=== PATIENT | male | born 1955 | race Two or more races ===

== ENCOUNTER 2017-11-27 10:36 | Emergency (ER) | payer OTHER ==
[~2017-11-27] VITALS: Ht 175.3 cm; Wt 84.4 kg
[~2017-11-27 10:36] MED LIST: XARELTO15 MG PO
== END 2017-11-27 12:40 | disposition home or self-care (01) ==
LOC: ER 10:36
DX: I82.401 Acute embolism and thrombosis of unspecified deep veins of right lower extremity (principal)

== ENCOUNTER 2022-07-03 08:18 | Outpatient (CLI) | payer OTHER | END 2022-07-03 08:30 | disposition home or self-care (01) | LOC: LAB 08:18 | PROVIDERS: ATTEND Surgery | DX: K57.32 Diverticulitis of large intestine without perforation or abscess without bleeding (principal); K56.50 Intestinal adhesions [bands], unspecified as to partial versus complete obstruction ==

== ENCOUNTER 2022-07-05 09:54 | Outpatient (CLI) | payer OTHER | END 2022-07-05 10:00 | disposition home or self-care (01) | LOC: RAD 09:54 | PROVIDERS: ATTEND Surgery | DX: K57.32 Diverticulitis of large intestine without perforation or abscess without bleeding (principal); K56.50 Intestinal adhesions [bands], unspecified as to partial versus complete obstruction ==

== ENCOUNTER 2022-07-07 12:23 | Inpatient (IN) | payer OTHER ==
[~2022-07-07] VITALS: Ht 175.3 cm; Wt 70.3 kg
[2022-07-07] MEDS ORDERED: ELIQUIS5 MG PO (13:25)
[2022-07-07] MEDS ORDERED: AMLODIP PO (13:25)
[2022-07-12] MEDS ORDERED: OMEPRAZOLE40 MG (08:21)
[2022-07-12] MEDS ORDERED: NORVASC2.5 MG (08:21)
[2022-07-12] MEDS ORDERED: FLONASE16 GM (08:21)
[2022-07-15] MEDS ORDERED: LEVSIN/SL0.125 MG SL (08:03)
[2022-07-15] MEDS ORDERED: INTESTINEX680 M1 PO (11:15)
== END 2022-07-15 14:05 | disposition home or self-care (01) | DRG 330 ==
LOC: SURH 07-12 05:40 → O/R 07-12 05:40 → SURH 07-12 08:28
PROVIDERS: ADMIT Surgery; ATTEND Surgery
PROC: 0DBP4ZZ Excision of Rectum, Percutaneous Endoscopic Approach (ICD-10-PCS; 2022-07-12)
PROC: 0DJD8ZZ Inspection of Lower Intestinal Tract, Via Natural or Artificial Opening Endoscopic (ICD-10-PCS; 2022-07-12)
PROC: 0DTN4ZZ Resection of Sigmoid Colon, Percutaneous Endoscopic Approach (ICD-10-PCS; principal; 2022-07-12 16:00)
DX: K57.32 Diverticulitis of large intestine without perforation or abscess without bleeding (principal); K56.49 Other impaction of intestine; K56.50 Intestinal adhesions [bands], unspecified as to partial versus complete obstruction; D12.7 Benign neoplasm of rectosigmoid junction; Z79.84 Long term (current) use of oral hypoglycemic drugs; I73.00 Raynaud's syndrome without gangrene; E16.2 Hypoglycemia, unspecified

== ENCOUNTER 2023-01-12 12:35 | Inpatient (IN) | payer OTHER ==
[~2023-01-12] VITALS: Ht 167.6 cm; Wt 63.5 kg
[~2023-01-12 12:35] MED LIST changes: +AMLODIP PO; +ELIQUIS5 MG PO; +FLONASE16 GM; +INTESTINEX680 M1 PO; +LEVSIN/SL0.125 MG SL; +NORVASC2.5 MG; +OMEPRAZOLE40 MG
[2023-01-12 15:16] LABS: HEMATOCRIT 39.3 % (39.0-48.0); HEMOGLOBIN 13.2 g/dL (13-16.00); MEAN CELL VOLUME 92.3 fL (80.0-100.00); MEAN CORPUSCULAR HGB CONC 33.6 g/dl (32.0-36.0); PLATELET COUNT 315 K/uL (150-450); RED BLOOD COUNT 4.25 M/uL (4.00-6.00); RED CELL DISTRIBUTION WIDTH 14.2 % (11.5-14.5)
[2023-01-12 15:21] LABS: PH,URINE 5.5 (5.0-8.0); URINE APPEARANCE Clear; URINE BILIRRUBIN Small (NEGATIVE); URINE BLOOD Negative; URINE COLOR Dark Yellow; URINE GLUCOSE Negative (NEGATIVE); URINE LEUKOCYTE Trace; URINE NITRATE Negative; URINE PROTEIN 30 (NEGATIVE)
[2023-01-12 15:22] LABS: URINE BACTERIA 15.7 uL (0.0-1933); URINE EPITHELIAL CELLS 13.7 uL (0.0-38.8); URINE RBC 7.4 uL (0.0-20.8); URINE WBC 11.2 uL (0.0-23.2)
[2023-01-12 15:52] LABS: ALBUMIN 3.2 gm/dL (3.4-5.0); BILIRUBIN TOTAL 1.25 mg/dL (0.3-1.2); BILIRUBIN,CONJUGATED 0.38 mg/dL (0.0-0.2); BILIRUBIN,UNCONJUGATED 0.87 mg/dL (0.0-0.6); CREATININE SERUM 0.38 mg/dL (0.70-1.30); GFR 227.65; POTASSIUM 3.71 mEq/L (3.5-5.1); TOTAL PROTEIN 7.8 gm/dL (6.4-8.2)
[2023-01-12 23:53] LABS: INR 1.05; PARTIAL THROMBOPLASTIN TIME 30.1 SECONDS (22.0-34.0)
[2023-01-13 02:09] LABS: ABG PO2 69.6 mmHg (80-100); BASE EXCESS -0.9 mmol/l; BICARBONATE 22.7 mmol/l (23-25); SaO2 94.2 %; Tco2 23.8 mmol/l
[2023-01-13 02:10] LABS: allen test SATISFACTORY; o2 21 %; puncture site RADIAL RIGHT
[2023-01-14 14:58] LABS: HEMATOCRIT 35.4 % (39.0-48.0); MEAN CELL VOLUME 92.4 fL (80.0-100.00); MEAN CORPUSCULAR HEMOGLOBIN 31.2 pg (27.00-32.0); MEAN CORPUSCULAR HGB CONC 33.8 g/dl (32.0-36.0); PLATELET COUNT 261 K/uL (150-450); RED BLOOD COUNT 3.83 M/uL (4.00-6.00); RED CELL DISTRIBUTION WIDTH 14.3 % (11.5-14.5)
[2023-01-14 15:23] LABS: ALBUMIN 2.5 gm/dL (3.4-5.0); BILIRUBIN TOTAL 0.56 mg/dL (0.3-1.2); BILIRUBIN,CONJUGATED 0.17 mg/dL (0.0-0.2); BILIRUBIN,UNCONJUGATED 0.39 mg/dL (0.0-0.6); CALCIUM 7.8 mg/dL (8.5-10.1); CREATININE SERUM 0.3 mg/dL (0.70-1.30); GFR 299.04; MAGNESIUM 1.8 mg/dL (1.8-2.4); PHOSPHOROUS 2.6 mg/dL (2.5-4.9); POTASSIUM 3.69 mEq/L (3.5-5.1)
[2023-01-14 15:24] LABS: C-REACTIVE PROTEIN 3.74 MG/DL (0.00-0.29)
[2023-01-17 06:43] LABS: HEMATOCRIT 31.9 % (39.0-48.0); HEMOGLOBIN 11.3 g/dL (13-16.00); MEAN CORPUSCULAR HEMOGLOBIN 31.8 pg (27.00-32.0); MEAN CORPUSCULAR HGB CONC 35.3 g/dl (32.0-36.0); PLATELET COUNT 238 K/uL (150-450); RED BLOOD COUNT 3.55 M/uL (4.00-6.00); RED CELL DISTRIBUTION WIDTH 14.2 % (11.5-14.5)
[2023-01-17 07:07] LABS: ERYTHROCYTE SEDIMENTATION RATE 18 mm/hr
[2023-01-17 07:16] LABS: ALBUMIN 2.1 gm/dL (3.4-5.0); BILIRUBIN TOTAL 0.25 mg/dL (0.3-1.2); CALCIUM 7.5 mg/dL (8.5-10.1); CREATININE SERUM 0.35 mg/dL (0.70-1.30); GFR 250.31; GLOBULINA 3.2 G/DL (2.4-3.5); TOTAL PROTEIN 5.3 gm/dL (6.4-8.2)
[2023-01-17 08:14] LABS: C-REACTIVE PROTEIN 0.93 MG/DL (0.00-0.29)
[2023-01-19] MEDS ORDERED: NORVASC2.5 M1 PO (13:19)
[2023-01-19] MEDS ORDERED: PRE PROTEIN1 EACH PO (13:19)
[2023-01-19] MEDS ORDERED: ELIQUIS5 MG PO (13:19)
[2023-01-19] MEDS ORDERED: PANTOPRAZOLE SO40 MG PO (13:19)
[2023-01-19] MEDS ORDERED: IPRATROPIU0.2 MG/1 M IH (13:19)
[2023-01-19] MEDS ORDERED: BENZONATATE100 MG PO (13:19)
[2023-01-19] MEDS ORDERED: PEPCID AC20 MG PO (13:19)
== END 2023-01-19 14:30 | disposition home or self-care (01) | DRG 178 ==
LOC: ER 12:36 → MEDJ 22:03 → MEDI 22:29
PROVIDERS: General Practice; Internal Medicine; ADMIT Internal Medicine Geriatric Medicine; ATTEND Internal Medicine Geriatric Medicine
PROC: BW21YZZ Computerized Tomography (CT Scan) of Abdomen and Pelvis using Other Contrast (ICD-10-PCS; 2023-01-12)
PROC: B24BZZZ Ultrasonography of Heart with Aorta (ICD-10-PCS; 2023-01-14)
PROC: 0DB98ZX Excision of Duodenum, Via Natural or Artificial Opening Endoscopic, Diagnostic (ICD-10-PCS; principal; 2023-01-17)
PROC: 0DB58ZX Excision of Esophagus, Via Natural or Artificial Opening Endoscopic, Diagnostic (ICD-10-PCS; 2023-01-17)
PROC: 0DB68ZX Excision of Stomach, Via Natural or Artificial Opening Endoscopic, Diagnostic (ICD-10-PCS; 2023-01-17)
PROC: BW21YZZ Computerized Tomography (CT Scan) of Abdomen and Pelvis using Other Contrast (ICD-10-PCS; 2023-01-19)
DX: J69.0 Pneumonitis due to inhalation of food and vomit (principal); D68.51 Activated protein C resistance; K31.5 Obstruction of duodenum; K21.00 Gastro-esophageal reflux disease with esophagitis, without bleeding; K29.80 Duodenitis without bleeding; I73.00 Raynaud's syndrome without gangrene; M60.89 Other myositis, multiple sites; G70.00 Myasthenia gravis without (acute) exacerbation; Z20.822 Contact with and (suspected) exposure to COVID-19

== ENCOUNTER 2023-11-15 14:34 | Inpatient (IN) | payer OTHER ==
[~2023-11-15] VITALS: Ht 167.6 cm; Wt 53.5 kg
[~2023-11-15 14:34] MED LIST changes: +ABANEU-SL TABL1 EACH SL; +APETIGEN L790 MG/15 PO; +BENZONATATE100 MG PO; +DuoNeb IH; +FUSION PLUS CA1 EACH PO; +IPRATROPIU0.2 MG/1 M IH; +NORVASC2.5 M1 PO; +PANTOPRAZOLE SO40 MG PO; +PEPCID AC20 MG PO; +PRE PROTEIN1 EACH PO; +PROTEINEX-18 LI30 ML PO; +SYMBICORT 16010.2 GM IH; +Tussi-Organidin Dm-S PO
[2023-11-15 16:40] LABS: ABG PH 7.367 (7.35-7.45); ABG pCO2 37.3 mmHg (35-45); BASE EXCESS -3.8 mmol/l; BICARBONATE 20.9 mmol/l (23-25); SaO2 86.3 %; Tco2 22.1 mmol/l
[2023-11-15] MEDS ORDERED: METHYLPREDNISOLONE SOD SUCC 125 MG VIAL IV STA (16:42)
[2023-11-15] MEDS ORDERED: LEVALBUTEROL HCL 1.25 MG/3 ML SOLUTION IH ONE (16:46)
[2023-11-15 16:48] LABS: HEMATOCRIT 43.9 % (39.0-48.0); HEMOGLOBIN 15.2 g/dL (13-16.00); MEAN CELL VOLUME 93.1 fL (80.0-100.00); MEAN CORPUSCULAR HEMOGLOBIN 32.3 pg (27.00-32.0); MEAN CORPUSCULAR HGB CONC 34.7 g/dl (32.0-36.0); PLATELET COUNT 282 K/uL (150-450); RED BLOOD COUNT 4.71 M/uL (4.00-6.00); RED CELL DISTRIBUTION WIDTH 15.9 % (11.5-14.5)
[2023-11-15] MEDS ORDERED: LEVALBUTEROL HCL 1.25 MG/3 ML SOLUTION IH SCH (17:00)
[2023-11-15 17:23] LABS: ALBUMIN 3.9 gm/dL (3.4-5.0); BILIRUBIN TOTAL 0.59 mg/dL (0.3-1.2); BILIRUBIN,CONJUGATED 0.21 mg/dL (0.0-0.2); BILIRUBIN,UNCONJUGATED 0.38 mg/dL (0.0-0.6); CALCIUM 8.7 mg/dL (8.5-10.1); CREATININE SERUM 0.53 mg/dL (0.70-1.30); GFR 154.6; POTASSIUM 3.9 mEq/L (3.5-5.1); TOTAL PROTEIN 8.3 gm/dL (6.4-8.2)
[2023-11-15] MEDS ORDERED: DEXTROSE 5 % AND 0.9 % NACL 1,000 ML IV SCH (18:15)
[2023-11-15] MEDS ORDERED: ONDANSETRON HCL 2 MG/ML VIAL IV PRN (18:15)
[2023-11-15] MEDS ORDERED: BENZONATATE 100 MG CAPSULE PO SCH (18:15)
[2023-11-15] MEDS ORDERED: CEFTRIAXONE SODIUM 1,000 MG VIAL IV STA (18:15)
[2023-11-15] MEDS ORDERED: AZITHROMYCIN 500 MG VIAL IV SCH (18:17)
[2023-11-15] MEDS ORDERED: GUAIFENESIN/DEXTROMETHORPHAN 10ML BLIST.PACK PO SCH (18:17)
[2023-11-15] MEDS ORDERED: IPRATROPIUM BROMIDE 0.5 MG/2.5 ML AMPUL.NEB IH SCH (18:18)
[2023-11-15 18:35] LABS: ABG PO2 54.2 mmHg (80-100); allen test SATISFACTORY; o2 32 %; puncture site RADIAL RIGHT
[2023-11-15] MEDS ORDERED: GUAIFENESIN/DEXTROMETHORPHAN 10ML BLIST.PACK PO ONE ×2 (18:53→19:19)
[2023-11-15] MEDS ORDERED: BENZONATATE 100 MG CAPSULE PO ONE (18:53)
[2023-11-15] MEDS ORDERED: CEFTRIAXONE SODIUM 2,000 MG VIAL ONE (18:53)
[2023-11-15] MEDS ORDERED: IPRATROPIUM BROMIDE 0.5 MG/2.5 ML AMPUL.NEB IH ONE (18:59)
[2023-11-15 19:13] LABS: ABG PH 7.367 (7.35-7.45); ABG pCO2 39.7 mmHg (35-45); BASE EXCESS -2.8 mmol/l; BICARBONATE 22.2 mmol/l (23-25); SaO2 98.9 %; Tco2 23.5 mmol/l
[2023-11-15 20:02] LABS: o2 100 %; puncture site RADIAL RIGHT
[2023-11-15 20:03] LABS: allen test SATISFACTORY
[2023-11-15] MEDS ORDERED: FAMOTIDINE/PF 20 MG/2 ML VIAL ONE (20:42)
[2023-11-15] MEDS ORDERED: METHYLPREDNISOLONE SOD SUCC 40 MG VIAL ONE (20:42)
[2023-11-15] MEDS ORDERED: APIXABAN 5 MG TABLET PO SCH (21:00)
[2023-11-15] MEDS ORDERED: BUDESONIDE 0.5 MG/2 ML AMPUL.NEB IH SCH (21:00)
[2023-11-15] MEDS ORDERED: FAMOTIDINE/PF 20 MG/10 ML SYRINGE IV SCH (21:00)
[2023-11-15] MEDS ORDERED: METHYLPREDNISOLONE SOD SUCC 40 MG VIAL IV SCH (21:00)
[2023-11-16] MEDS ORDERED: LEVALBUTEROL HCL 0.63 MG/3 ML SOLUTION IH SCH
[2023-11-16 04:58] LABS: PH,URINE 5.5 (5.0-8.0); URINE APPEARANCE Cloudy; URINE BILIRRUBIN Negative (NEGATIVE); URINE BLOOD Negative; URINE COLOR Dark Yellow; URINE GLUCOSE Negative (NEGATIVE); URINE KETONE 15 (NEGATIVE); URINE LEUKOCYTE Negative; URINE NITRATE Negative; URINE PROTEIN 30 (NEGATIVE); URINE UROBILINOGEN 0.2 E.U./dl
[2023-11-16 05:02] LABS: URINE BACTERIA 91.9 uL (0.0-1933); URINE CAST 18.78 uL (0.0-1.40); URINE EPITHELIAL CELLS 50.8 uL (0.0-38.8); URINE RBC 7.7 uL (0.0-20.8); URINE WBC 10.9 uL (0.0-23.2)
[2023-11-16 05:29] LABS: URINE MUCUS SCANT
[2023-11-16 07:50] LABS: HEMATOCRIT 38.4 % (39.0-48.0); HEMOGLOBIN 13.3 g/dL (13-16.00); MEAN CELL VOLUME 91.5 fL (80.0-100.00); MEAN CORPUSCULAR HEMOGLOBIN 31.7 pg (27.00-32.0); MEAN CORPUSCULAR HGB CONC 34.7 g/dl (32.0-36.0); PLATELET COUNT 170 K/uL (150-450)
[2023-11-16 08:20] LABS: ERYTHROCYTE SEDIMENTATION RATE 10 mm/hr
[2023-11-16 08:44] LABS: ALBUMIN 3.7 gm/dL (3.4-5.0); BILIRUBIN TOTAL 0.69 mg/dL (0.3-1.2); CREATININE SERUM 0.43 mg/dL (0.70-1.30); GFR 196.79; GLOBULINA 3.8 G/DL (2.4-3.5); PHOSPHOROUS 3.7 mg/dL (2.5-4.9); POTASSIUM 4.52 mEq/L (3.5-5.1); TOTAL PROTEIN 7.5 gm/dL (6.4-8.2)
[2023-11-16 08:50] LABS: C-REACTIVE PROTEIN 8.94 MG/DL (0.00-0.29)
[2023-11-16 08:51] LABS: MAGNESIUM 1.3 mg/dL (1.8-2.4)
[2023-11-16] MEDS ORDERED: AMLODIPINE BESYLATE 2.5 MG TABLET PO SCH (09:00)
[2023-11-16] MEDS ORDERED: MAGNESIUM SULFATE IN WATER 50 ML IV ONE (12:00)
[2023-11-16] MEDS ORDERED: TUBERCULIN,PURIF.PROT.DERIV. 10 SKIN.TEST SKIN.TEST ID STA (13:30)
[2023-11-16] MEDS ORDERED: CEFTRIAXONE SODIUM 1,000 MG VIAL IV SCH (17:00)
[2023-11-16] MEDS ORDERED: LACTOBACILLUS ACIDOPHILUS 1 CAP CAP PO SCH (17:00)
[2023-11-16] MEDS ORDERED: GUAIFENESIN/DEXTROMETHORPHAN 10ML BLIST.PACK PO SCH (18:00)
[2023-11-16] MEDS ORDERED: PIPERACILLIN/TAZOBACTAM SODIUM 3.375 GM in 0.9 % SODIUM CHLORIDE 100 ML IV SCH (18:00)
[2023-11-16] MEDS ORDERED: FAMOTIDINE/PF 20 MG/2 ML VIAL IV SCH (21:00)
[2023-11-17 12:39] LABS: MYCOPLASMA PNEUMONIAE IGM NON REACTIVE (NO REACTIVE)
[2023-11-18 05:56] LABS: HEMATOCRIT 29.5 % (39.0-48.0); HEMOGLOBIN 10.4 g/dL (13-16.00); MEAN CELL VOLUME 92.2 fL (80.0-100.00); MEAN CORPUSCULAR HEMOGLOBIN 32.6 pg (27.00-32.0); MEAN CORPUSCULAR HGB CONC 35.3 g/dl (32.0-36.0); PLATELET COUNT 131 K/uL (150-450); RED CELL DISTRIBUTION WIDTH 15.9 % (11.5-14.5)
[2023-11-18 06:41] LABS: ALBUMIN 2.6 gm/dL (3.4-5.0); BILIRUBIN TOTAL 0.5 mg/dL (0.3-1.2); CALCIUM 8.4 mg/dL (8.5-10.1); MAGNESIUM 1.8 mg/dL (1.8-2.4); PHOSPHOROUS 2.1 mg/dL (2.5-4.9); POTASSIUM 3.08 mEq/L (3.5-5.1); TOTAL PROTEIN 5.6 gm/dL (6.4-8.2)
[2023-11-18 06:46] LABS: C-REACTIVE PROTEIN 2.77 MG/DL (0.00-0.29); CREATININE SERUM 0.23 mg/dL (0.70-1.30); GFR 405.14
[2023-11-18] MEDS ORDERED: POTASSIUM CHLORIDE 20MEQ/100ML H2O PB IV NR (09:41)
[2023-11-18] MEDS ORDERED: POTASSIUM PHOS,M-BASIC-D-BASIC 3 MM/ML VIAL IV NR (09:42)
[2023-11-18 12:17] LABS: ABG PH 7.463 (7.35-7.45); ABG PO2 68.2 mmHg (80-100); ABG pCO2 34.6 mmHg (35-45); BICARBONATE 24.2 mmol/l (23-25); SaO2 94.5 %; Tco2 25.3 mmol/l; allen test SATISFACTORY; o2 21 %; puncture site RADIAL LEFT
[2023-11-18] MEDS ORDERED: METHYLPREDNISOLONE SOD SUCC 40 MG VIAL IV SCH (13:00)
[2023-11-19] MEDS ORDERED: SOD FERRIC GLUC COMPLX/SUCROSE 62.5 MG in 0.9 % SODIUM CHLORIDE 50 ML IV SCH (12:00)
[2023-11-19] MEDS ORDERED: Cyanocobalamin/Mecobalamin 1 TAB.SL SL SCH (12:00)
[2023-11-19] MEDS ORDERED: THIAMINE HCL 100 MG TABLET PO SCH (12:00)
[2023-11-20 08:30] LABS: HEMATOCRIT 33.3 % (39.0-48.0); HEMOGLOBIN 11.5 g/dL (13-16.00); MEAN CELL VOLUME 91.9 fL (80.0-100.00); MEAN CORPUSCULAR HEMOGLOBIN 31.7 pg (27.00-32.0); MEAN CORPUSCULAR HGB CONC 34.4 g/dl (32.0-36.0); PLATELET COUNT 160 K/uL (150-450); RED BLOOD COUNT 3.63 M/uL (4.00-6.00); RED CELL DISTRIBUTION WIDTH 16.7 % (11.5-14.5)
[2023-11-20 11:58] LABS: CALCIUM 9.1 mg/dL (8.5-10.1); CREATININE SERUM 0.46 mg/dL (0.70-1.30); GFR 182.06; MAGNESIUM 1.5 mg/dL (1.8-2.4); PHOSPHOROUS 2.5 mg/dL (2.5-4.9); POTASSIUM 5.35 mEq/L (3.5-5.1); T4 TOTAL 6.12 UG/DL (4.5-12.1)
[2023-11-20 12:03] LABS: TSH 0.166 uIU/mL (0.358-3.74)
[2023-11-20] MEDS ORDERED: MAGNESIUM SULFATE IN WATER 4 GM/100 ML PIGGYBACK IV NR (16:15)
[2023-11-21] MEDS ORDERED: MAGNESIUM SULFATE IN WATER 50 ML IV NR (08:45)
[2023-11-21 10:34] LABS: ABG PO2 80.2 mmHg (80-100); ABG pCO2 44.2 mmHg (35-45); BASE EXCESS 9.3 mmol/l; BICARBONATE 33.7 mmol/l (23-25); SaO2 97.1 %; Tco2 35.1 mmol/l; allen test SATISFACTORY; o2 32 %; puncture site RADIAL RIGHT
[2023-11-21] MEDS ORDERED: ANIDULAFUNGIN 100 MG VIAL IV NR (17:00)
[2023-11-21] MEDS ORDERED: ENOXAPARIN SODIUM 60 MG/0.6 ML SYRINGE SUBCUTANEO SCH (21:00)
[2023-11-22] MEDS ORDERED: METHYLPREDNISOLONE SOD SUCC 40 MG VIAL IV SCH (09:00)
[2023-11-22] MEDS ORDERED: ANIDULAFUNGIN 100 MG VIAL IV SCH (09:00)
[2023-11-22 09:27] LABS: CALCIUM 8.1 mg/dL (8.5-10.1); GFR 351.68; PHOSPHOROUS 3.7 mg/dL (2.5-4.9); POTASSIUM 4.19 mEq/L (3.5-5.1)
[2023-11-22 09:28] LABS: CREATININE SERUM 0.26 mg/dL (0.70-1.30)
[2023-11-22 11:28] LABS: HEMATOCRIT 35.5 % (39.0-48.0); HEMOGLOBIN 12.1 g/dL (13-16.00); MEAN CELL VOLUME 91.9 fL (80.0-100.00); MEAN CORPUSCULAR HEMOGLOBIN 31.2 pg (27.00-32.0); PLATELET COUNT 183 K/uL (150-450); RED BLOOD COUNT 3.86 M/uL (4.00-6.00); RED CELL DISTRIBUTION WIDTH 16.4 % (11.5-14.5)
[2023-11-22 15:10] LABS: ANTI SCLERODERMA 70 < 0.2 AI (0.0-0.9); ANTI-CENTROMERE AB >8.0 AI (0.0-0.9)
[2023-11-23] MEDS ORDERED: MIDAZOLAM HCL 2 MG/2 ML VIAL IV ONE (12:45)
[2023-11-23] MEDS ORDERED: fentaNYL CITRATE 50 MCG/ML AMPUL IV ONE (12:45)
[2023-11-23] MEDS ORDERED: ENOXAPARIN SODIUM 100 MG/ML SYRINGE SUBCUTANEO STA (14:18)
[2023-11-23] MEDS ORDERED: ENOXAPARIN SODIUM 60 MG/0.6 ML SYRINGE SUBCUTANEO SCH (17:00)
[2023-11-24 17:06] LABS: Alpha Tochpherol 5.2 mg/L (9.0-29.0)
[2023-11-25 08:34] LABS: HEMATOCRIT 37.6 % (39.0-48.0); HEMOGLOBIN 12.8 g/dL (13-16.00); MEAN CELL VOLUME 93.7 fL (80.0-100.00); MEAN CORPUSCULAR HEMOGLOBIN 31.9 pg (27.00-32.0); PLATELET COUNT 224 K/uL (150-450); RED BLOOD COUNT 4.01 M/uL (4.00-6.00); RED CELL DISTRIBUTION WIDTH 16.2 % (11.5-14.5)
[2023-11-25 09:15] LABS: CALCIUM 8.7 mg/dL (8.5-10.1); CREATININE SERUM 0.34 mg/dL (0.70-1.30); GFR 258.05; PHOSPHOROUS 2.7 mg/dL (2.5-4.9); POTASSIUM 5.13 mEq/L (3.5-5.1); T4 TOTAL 6.82 UG/DL (4.5-12.1); TSH 1.02 uIU/mL (0.358-3.74)
[2023-11-25] MEDS ORDERED: MORPHINE SULFATE 4 MG/ML CARTRIDGE IV PRN (17:45)
[2023-11-25] MEDS ORDERED: ENOXAPARIN SODIUM 60 MG/0.6 ML SYRINGE SUBCUTANEO SCH (21:00)
[2023-11-27 07:46] LABS: HEMATOCRIT 36.1 % (39.0-48.0); HEMOGLOBIN 12.3 g/dL (13-16.00); MEAN CELL VOLUME 91.7 fL (80.0-100.00); MEAN CORPUSCULAR HEMOGLOBIN 31.3 pg (27.00-32.0); MEAN CORPUSCULAR HGB CONC 34.1 g/dl (32.0-36.0); PLATELET COUNT 224 K/uL (150-450); RED BLOOD COUNT 3.93 M/uL (4.00-6.00); RED CELL DISTRIBUTION WIDTH 16.4 % (11.5-14.5)
[2023-11-27 08:26] LABS: CALCIUM 8.3 mg/dL (8.5-10.1); CREATININE SERUM 0.39 mg/dL (0.70-1.30); GFR 220.26; MAGNESIUM 1.8 mg/dL (1.8-2.4); POTASSIUM 3.97 mEq/L (3.5-5.1)
[2023-11-27] MEDS ORDERED: POTASSIUM PHOS,M-BASIC-D-BASIC 3 MM/ML VIAL IV NR (09:15)
[2023-11-28] MEDS ORDERED: IPRATROPIUM/ALBUTEROL SULFATE 3 ML AMPUL.NEB IH SCH (21:00)
[2023-11-29 10:16] LABS: HEMATOCRIT 33.3 % (39.0-48.0); HEMOGLOBIN 11.3 g/dL (13-16.00); MEAN CELL VOLUME 92.1 fL (80.0-100.00); MEAN CORPUSCULAR HEMOGLOBIN 31.3 pg (27.00-32.0); PLATELET COUNT 225 K/uL (150-450); RED BLOOD COUNT 3.61 M/uL (4.00-6.00); RED CELL DISTRIBUTION WIDTH 16.7 % (11.5-14.5)
[2023-11-29 11:26] LABS: CALCIUM 8.7 mg/dL (8.5-10.1); CREATININE SERUM 0.32 mg/dL (0.70-1.30); GFR 276.75; MAGNESIUM 1.9 mg/dL (1.8-2.4); POTASSIUM 4.96 mEq/L (3.5-5.1)
[2023-11-29 11:31] LABS: PHOSPHOROUS 1.8 mg/dL (2.5-4.9)
[2023-11-29] MEDS ORDERED: NAPH,MB-DB/K PH,MBDB 1 PKT PACKET PO NR (14:00)
[2023-11-29] MEDS ORDERED: ELIQUIS5 MG PO (14:14)
[2023-11-29] MEDS ORDERED: FUSION PLUS CA1 EACH PO (14:15)
[2023-11-29] MEDS ORDERED: BENZONATATE100 MG PO (14:15)
[2023-11-29] MEDS ORDERED: NORVASC2.5 M1 PO (14:15)
[2023-11-29] MEDS ORDERED: Tussi-Organidin Dm-S PO (14:16)
[2023-11-29] MEDS ORDERED: PEPCID AC20 MG PO (14:17)
[2023-11-29] MEDS ORDERED: INTESTINEX680 M1 PO (14:17)
[2023-11-29] MEDS ORDERED: PANTOPRAZOLE SO40 MG PO (14:18)
[2023-11-29] MEDS ORDERED: ABANEU-SL TABL1 EACH SL (14:18)
[2023-11-29] MEDS ORDERED: APETIGEN L790 MG/15 PO (14:19)
[2023-11-29] MEDS ORDERED: THIAMINE HCL100 MG PO (14:19)
[2023-11-29] MEDS ORDERED: PROTEINEX-18 LI30 ML PO (14:20)
[2023-11-29] MEDS ORDERED: IPRAT-ALBUT 0.5-3 ML IH (14:20)
[2023-11-29] MEDS ORDERED: BUDESONIDE0.5 MG/2 M IH (14:21)
== END 2023-11-29 23:27 | disposition home or self-care (01) | DRG 853 ==
LOC: ER 14:35 → SURH 18:42 → MEDJ 18:42 → SEC-K 19:12 → SURH 19:37
PROVIDERS: General Practice; Internal Medicine; Internal Medicine Infectious Disease; ADMIT Internal Medicine Geriatric Medicine; ATTEND Internal Medicine Geriatric Medicine
PROC: BW24ZZZ Computerized Tomography (CT Scan) of Chest and Abdomen (ICD-10-PCS; 2023-11-15)
PROC: B030ZZZ Magnetic Resonance Imaging (MRI) of Brain (ICD-10-PCS; 2023-11-17)
PROC: CF1C1ZZ Planar Nuclear Medicine Imaging of Hepatobiliary System, All using Technetium 99m (Tc-99m) (ICD-10-PCS; 2023-11-18)
PROC: 0DJ08ZZ Inspection of Upper Intestinal Tract, Via Natural or Artificial Opening Endoscopic (ICD-10-PCS; 2023-11-23)
PROC: 0D964ZZ Drainage of Stomach, Percutaneous Endoscopic Approach (ICD-10-PCS; principal; 2023-11-25 16:30)
DX: A41.9 Sepsis, unspecified organism (principal); J69.0 Pneumonitis due to inhalation of food and vomit; J80 Acute respiratory distress syndrome; D68.59 Other primary thrombophilia; E46 Unspecified protein-calorie malnutrition; Z68.1 Body mass index [BMI] 19.9 or less, adult; J44.9 Chronic obstructive pulmonary disease, unspecified; J98.8 Other specified respiratory disorders; D72.829 Elevated white blood cell count, unspecified; K22.9 Disease of esophagus, unspecified; K81.1 Chronic cholecystitis; D64.9 Anemia, unspecified; I73.00 Raynaud's syndrome without gangrene
CPT/HCPCS: 70553

== ENCOUNTER 2023-12-04 20:06 | Inpatient (IN) | payer OTHER ==
[~2023-12-04] VITALS: Ht 170.2 cm; Wt 47.6 kg
[~2023-12-04 20:06] MED LIST changes: +BUDESONIDE0.5 MG/2 M IH; +FUROsemide 40 MG/4 ML VIAL ONE; +IPRAT-ALBUT 0.5-3 ML IH; +THIAMINE HCL100 MG PO
--- NOTE | 2023-12-04 20:07 | NUR ---
PACIENTE TRAIDO POR UN FAMILIAR EL MISMO REFIERE QUE [facility] EL MISMO ESTABA COMIENDO POR BOCA Y COMENZO CON DIFICIULTAD RESPIRATORIA. PACIENTE CON DIFICULTAD RESPIRATORIA MARCADA SE PASA PACIENTE DIRECTO A CAMA # 3 DE AREA DE CRITICO
[2023-12-04] MEDS ORDERED: FUROsemide 40 MG/4 ML VIAL IV SCH (20:45)
[2023-12-04 21:00] LABS: ABG PH 7.334 (7.35-7.45); ABG pCO2 58.7 mmHg (35-45)
[2023-12-04] MEDS ORDERED: MIDAZOLAM HCL/PF 5 MG/ML VIAL IV ONE (21:00)
[2023-12-04 21:01] LABS: ABG PO2 50.5 mmHg (80-100); BICARBONATE 30.6 mmol/l (23-25); SaO2 82.9 %; Tco2 32.4 mmol/l; allen test SATISFACTORY; o2 28 %; puncture site RADIAL LEFT
[2023-12-04] MEDS ORDERED: CEFTRIAXONE SODIUM 1,000 MG VIAL IV ONE (21:30)
[2023-12-04] MEDS ORDERED: LEVALBUTEROL HCL 0.63 MG/3 ML SOLUTION IH SCH (21:36)
[2023-12-04] MEDS ORDERED: IPRATROPIUM BROMIDE 0.5 MG/2.5 ML AMPUL.NEB IH SCH (21:36)
[2023-12-04 21:38] LABS: HEMOGLOBIN 12.4 g/dL (13-16.00); MEAN CELL VOLUME 91.9 fL (80.0-100.00); MEAN CORPUSCULAR HEMOGLOBIN 30.8 pg (27.00-32.0); MEAN CORPUSCULAR HGB CONC 33.5 g/dl (32.0-36.0); PLATELET COUNT 376 K/uL (150-450); RED BLOOD COUNT 4.02 M/uL (4.00-6.00); RED CELL DISTRIBUTION WIDTH 16.6 % (11.5-14.5)
[2023-12-04] MEDS ORDERED: PIPERACILLIN/TAZOBACTAM SODIUM 3.375 GM in DEXTROSE 5 % IN WATER 100 ML IV SCH (21:40)
[2023-12-04 21:42] LABS: INR 1.09; PROTHROMBIN TIME 11.8 SECONDS (9.0-11.5)
[2023-12-04] MEDS ORDERED: METHYLPREDNISOLONE SOD SUCC 40 MG VIAL IV SCH (21:44)
[2023-12-04] MEDS ORDERED: 0.9 % SODIUM CHLORIDE 1,000 ML IV SCH (21:45)
[2023-12-04] MEDS ORDERED: ENALAPRILAT DIHYDRATE 1.25 MG/ML VIAL IV PRN (21:45)
[2023-12-04] MEDS ORDERED: BUDESONIDE 0.5 MG/2 ML AMPUL.NEB IH SCH (21:55)
[2023-12-04] MEDS ORDERED: METHYLPREDNISOLONE SOD SUCC 125 MG VIAL ONE (22:00)
[2023-12-04] MEDS ORDERED: PIPERACILLIN/TAZOBACTAM SODIUM 3.375 GM VIAL IV ONE (22:00)
[2023-12-04] MEDS ORDERED: PROPOFOL 100 ML IV SCH (22:00)
[2023-12-04] MEDS ORDERED: LEVALBUTEROL HCL 0.63 MG/3 ML SOLUTION IH ONE (22:03)
[2023-12-04 22:16] LABS: CALCIUM 9.1 mg/dL (8.5-10.1); CHOL HDL RATIO 2.5 (0-5.0); CREATININE SERUM 0.56 mg/dL (0.70-1.30); GFR 145.08; MAGNESIUM 1.9 mg/dL (1.8-2.4); POTASSIUM 3.63 mEq/L (3.5-5.1); URIC ACID 2.8 mg/dL (3.5-8.5)
[2023-12-04 22:16] LABS: PH,URINE 5.5 (5.0-8.0); URINE APPEARANCE Clear; URINE BILIRRUBIN Negative (NEGATIVE); URINE BLOOD Negative; URINE COLOR Yellow; URINE GLUCOSE Negative (NEGATIVE); URINE KETONE Negative (NEGATIVE); URINE LEUKOCYTE Negative; URINE NITRATE Negative; URINE PROTEIN 30 (NEGATIVE); URINE UROBILINOGEN 0.2 E.U./dl
[2023-12-04 22:19] LABS: URINE BACTERIA 61.7 uL (0.0-1933); URINE CAST 5.34 uL (0.0-1.40); URINE EPITHELIAL CELLS 8.8 uL (0.0-38.8); URINE RBC 14.9 uL (0.0-20.8); URINE WBC 26.2 uL (0.0-23.2)
[2023-12-04 22:24] LABS: ABG PH 7.408 (7.35-7.45); ABG PO2 344.6 mmHg (80-100); ABG pCO2 48.1 mmHg (35-45); BICARBONATE 29.6 mmol/l (23-25); SaO2 99.9 %; Tco2 31.1 mmol/l
[2023-12-04 23:00] VITALS: BP 75/55; O2SAT 100
[2023-12-04 23:03] VITALS: BP 93/62; O2SAT 100
[2023-12-04 23:25] LABS: DIGOXIN 0.1 ng/ml (0.8-2.0)
[2023-12-04 23:26] LABS: allen test SATISFACTORY; o2 100 %; puncture site RADIAL LEFT
--- NOTE | 2023-12-04 23:42 | NUR ---
2014 SE RECIBE PACIENTE A AREA DE CRITICO EN [place], ALERTA Y ORIENTADO X3. EL MISMO SE OBSERVA CON DIFICULTAD RESPIRATORIA. SE CONECTA A MONITOR CARDIACO Y OXIMETRIA DE PUL[place] CONTINUO. SE CONTACTA A PERSONAL DE TERAPIA RESPIRATORIA Y ANESTESIA. SE ABRE ACCESO VENOSO EN AMBAS EXTREMIDADES SUPERIORES. SE REALIZAN MUESTRAS DE LAB BAJO MEDIDAS ASEPTICAS. SE ADMINISTRA MEDICAMENTOS ISA ORDENES VERBALES DE DR. HORNE Y SE CORROBORAN LAS MISMAS. 2024 PERSONAL DE ANESTESIA MISS Hannah LAGU[place] REALIZA ENTUBACION A PACIENTE CON TUBO 7.5 EN COMISURA LABIAL 25. PERSONAL DE TERAPIA REALIZA SUCCION Y COLOCA VENTILADOR MECANICO CON PARAMETROS EN A/C VT 530, P 5, 02 100, R 14. SE REALIZA EKG, SE COLOCAN RESTRICCIONES VINNIE PROTOCOLO DE VENTILADOR.
[2023-12-05] VITALS (11 sets, daily range): BP systolic 83–109; BP diastolic 61–75; O2SAT 100
[2023-12-05] MEDS ORDERED: PIPERACILLIN/TAZOBACTAM SODIUM 3.375 GM VIAL IV ONE (05:30)
[2023-12-05 06:33] LABS: HEMATOCRIT 30.8 % (39.0-48.0); MEAN CELL VOLUME 90.5 fL (80.0-100.00); MEAN CORPUSCULAR HEMOGLOBIN 32.3 pg (27.00-32.0); MEAN CORPUSCULAR HGB CONC 35.6 g/dl (32.0-36.0); PLATELET COUNT 206 K/uL (150-450); RED BLOOD COUNT 3.41 M/uL (4.00-6.00); RED CELL DISTRIBUTION WIDTH 16.5 % (11.5-14.5)
[2023-12-05 07:19] LABS: ALBUMIN 2.5 gm/dL (3.4-5.0); BILIRUBIN TOTAL 0.94 mg/dL (0.3-1.2); GFR 322.86; GLOBULINA 3.2 G/DL (2.4-3.5); POTASSIUM 3.5 mEq/L (3.5-5.1); TOTAL PROTEIN 5.7 gm/dL (6.4-8.2)
[2023-12-05 07:23] LABS: CREATININE SERUM 0.28 mg/dL (0.70-1.30)
[2023-12-05 08:17] LABS: ABG PH 7.476 (7.35-7.45); ABG PO2 209.2 mmHg (80-100); ABG pCO2 39.3 mmHg (35-45); BASE EXCESS 4.6 mmol/l; BICARBONATE 28.4 mmol/l (23-25); SaO2 99.8 %; Tco2 29.6 mmol/l
[2023-12-05] MEDS ORDERED: FAMOTIDINE/PF 20 MG in 0.9 % SODIUM CHLORIDE 100 ML IV SCH ×2 (09:00→21:00)
[2023-12-05] MEDS ORDERED: ENOXAPARIN SODIUM 40 MG/0.4 ML SYRINGE SUBCUTANEO SCH ×2 (09:00→21:00)
[2023-12-05 09:42] LABS: allen test SATISFACTORY; o2 50 %; puncture site RADIAL LEFT
[2023-12-05 10:38] LABS: ABG PH 7.438 (7.35-7.45); ABG PO2 342.8 mmHg (80-100); ABG pCO2 41.8 mmHg (35-45); BASE EXCESS 3.1 mmol/l; BICARBONATE 27.6 mmol/l (23-25); SaO2 99.9 %; Tco2 28.9 mmol/l
[2023-12-05] MEDS ORDERED: IPRATROPIUM BROMIDE 0.5 MG/2.5 ML AMPUL.NEB IH STA (11:03)
[2023-12-05] MEDS ORDERED: LEVALBUTEROL HCL 1.25 MG/3 ML SOLUTION IH SCH (12:00)
[2023-12-05 12:17] LABS: allen test SATISFACTORY; o2 50 %; puncture site RADIAL RIGHT
[2023-12-05] MEDS ORDERED: EMOLLIENTS 6 OZ BOTTLE TOP SCH (13:00)
[2023-12-05] MEDS ORDERED: PANTOPRAZOLE SODIUM 40 MG/VIAL VIAL IV STA (13:40)
[2023-12-05] MEDS ORDERED: ANIDULAFUNGIN 100 MG VIAL IV NR (14:00)
[2023-12-05] MEDS ORDERED: METOCLOPRAMIDE HCL 5 MG/5 ML ML PO SCH (17:00)
[2023-12-05] MEDS ORDERED: METOCLOPRAMIDE HCL 5 MG/ML VIAL IV SCH (17:00)
[2023-12-05] MEDS ORDERED: IPRATROPIUM BROMIDE 0.5 MG/2.5 ML AMPUL.NEB IH SCH (18:00)
[2023-12-05] MEDS ORDERED: POTASSIUM PHOS,M-BASIC-D-BASIC 18 MM in 0.9 % SODIUM CHLORIDE 250 ML IV STA (20:05)
[2023-12-06 04:00] VITALS: BP 98/60; O2SAT 100
[2023-12-06] MEDS ORDERED: PANTOPRAZOLE SODIUM 40 MG/VIAL VIAL IV SCH (06:00)
[2023-12-06 06:19] LABS: HEMATOCRIT 27.8 % (39.0-48.0); HEMOGLOBIN 9.5 g/dL (13-16.00); MEAN CELL VOLUME 92.2 fL (80.0-100.00); MEAN CORPUSCULAR HEMOGLOBIN 31.4 pg (27.00-32.0); MEAN CORPUSCULAR HGB CONC 34.1 g/dl (32.0-36.0); PLATELET COUNT 202 K/uL (150-450); RED BLOOD COUNT 3.01 M/uL (4.00-6.00); RED CELL DISTRIBUTION WIDTH 15.9 % (11.5-14.5)
[2023-12-06 06:58] LABS: ALBUMIN 2.2 gm/dL (3.4-5.0); BILIRUBIN TOTAL 0.47 mg/dL (0.3-1.2); CALCIUM 7.9 mg/dL (8.5-10.1); GLOBULINA 3.3 G/DL (2.4-3.5); MAGNESIUM 1.7 mg/dL (1.8-2.4); PHOSPHOROUS 2.6 mg/dL (2.5-4.9); POTASSIUM 3.4 mEq/L (3.5-5.1); TOTAL PROTEIN 5.5 gm/dL (6.4-8.2)
[2023-12-06 07:01] LABS: C-REACTIVE PROTEIN 14.3 MG/DL (0.00-0.29); GFR 449.96
[2023-12-06 07:18] VITALS: BP 96/71; O2SAT 100
[2023-12-06 07:18] LABS: CREATININE SERUM 0.21 mg/dL (0.70-1.30)
[2023-12-06] MEDS ORDERED: AMLODIPINE BESYLATE 2.5 MG TABLET PO SCH (09:00)
[2023-12-06] MEDS ORDERED: CHLORHEXIDINE GLUCONATE 120 ML BOTTLE TOP ONE (09:30)
[2023-12-06] MEDS ORDERED: SOD FERRIC GLUC COMPLX/SUCROSE 62.5 MG in 0.9 % SODIUM CHLORIDE 50 ML IV SCH (11:50)
[2023-12-06] MEDS ORDERED: POTASSIUM CHLORIDE 20MEQ/100ML H2O PB IV NR (11:52)
[2023-12-06] MEDS ORDERED: MAGNESIUM SULFATE/D5W 100 ML IV NR (11:52)
[2023-12-06] MEDS ORDERED: Cyanocobalamin/Mecobalamin 1 TAB.SL SL SCH (11:53)
[2023-12-06 11:59] VITALS: BP 116/71; O2SAT 100
[2023-12-06] MEDS ORDERED: ANIDULAFUNGIN 100 MG VIAL IV SCH (12:00)
[2023-12-06 16:22] VITALS: BP 103/67; O2SAT 100
[2023-12-06 20:00] VITALS: BP 105/70; O2SAT 88
[2023-12-06 23:45] VITALS: BP 97/66; O2SAT 97
[2023-12-07 04:00] VITALS: BP 96/64; O2SAT 100
[2023-12-07 07:10] LABS: HEMATOCRIT 28.7 % (39.0-48.0); HEMOGLOBIN 9.8 g/dL (13-16.00); MEAN CELL VOLUME 91.8 fL (80.0-100.00); MEAN CORPUSCULAR HEMOGLOBIN 31.5 pg (27.00-32.0); MEAN CORPUSCULAR HGB CONC 34.3 g/dl (32.0-36.0); PLATELET COUNT 242 K/uL (150-450); RED BLOOD COUNT 3.12 M/uL (4.00-6.00); RED CELL DISTRIBUTION WIDTH 16.4 % (11.5-14.5)
[2023-12-07 07:24] VITALS: BP 108/73; O2SAT 100
[2023-12-07] MEDS ORDERED: MEROPENEM 500 MG/VIAL VIAL IV SCH (09:00)
[2023-12-07 12:00] VITALS: BP 116/75; O2SAT 100
[2023-12-07 14:21] VITALS: BP 116/75; O2SAT 100
[2023-12-07 15:42] VITALS: BP 123/72; O2SAT 100
[2023-12-07] MEDS ORDERED: PIPERACILLIN/TAZOBACTAM SODIUM 3.375 GM in DEXTROSE 5 % IN WATER 100 ML IV SCH (18:00)
[2023-12-08] VITALS (9 sets, daily range): BP systolic 116–124; BP diastolic 77–86; O2SAT 94–100
[2023-12-08] MEDS ORDERED: PANTOPRAZOLE SODIUM 40 MG/VIAL VIAL IV SCH (06:30)
[2023-12-08 07:12] LABS: HEMATOCRIT 32.8 % (39.0-48.0); HEMOGLOBIN 11.2 g/dL (13-16.00); MEAN CELL VOLUME 91.1 fL (80.0-100.00); PLATELET COUNT 258 K/uL (150-450); RED CELL DISTRIBUTION WIDTH 16.3 % (11.5-14.5)
[2023-12-08] MEDS ORDERED: PANTOPRAZOLE SODIUM 80 MG in 0.9 % SODIUM CHLORIDE 100 ML IV SCH (10:45)
[2023-12-08] MEDS ORDERED: MINERAL OIL 133 ML ENEMA RECTAL NR (15:45)
[2023-12-08] MEDS ORDERED: MINERAL OIL 133 ML ENEMA RECTAL SCH (17:00)
[2023-12-09] VITALS: BP 107/78; O2SAT 97
[2023-12-09] MEDS ORDERED: MINERAL OIL 133 ML ENEMA RECTAL SCH (09:00)
[2023-12-09 09:05] VITALS: BP 115/79; O2SAT 92
[2023-12-09 09:16] VITALS: O2SAT 90
[2023-12-09 11:20] LABS: HEMATOCRIT 34.7 % (39.0-48.0); HEMOGLOBIN 11.6 g/dL (13-16.00); MEAN CELL VOLUME 91.6 fL (80.0-100.00); MEAN CORPUSCULAR HEMOGLOBIN 30.7 pg (27.00-32.0); MEAN CORPUSCULAR HGB CONC 33.5 g/dl (32.0-36.0); PLATELET COUNT 281 K/uL (150-450); RED BLOOD COUNT 3.79 M/uL (4.00-6.00); RED CELL DISTRIBUTION WIDTH 16.7 % (11.5-14.5)
[2023-12-09 12:15] LABS: CALCIUM 8.4 mg/dL (8.5-10.1); MAGNESIUM 1.7 mg/dL (1.8-2.4); PHOSPHOROUS 2.6 mg/dL (2.5-4.9); POTASSIUM 3.05 mEq/L (3.5-5.1)
[2023-12-09 12:32] LABS: C-REACTIVE PROTEIN 1.45 MG/DL (0.00-0.29); CREATININE SERUM 0.23 mg/dL (0.70-1.30); GFR 405.14
[2023-12-09 12:52] VITALS: O2SAT 99
[2023-12-09] MEDS ORDERED: METHYLPREDNISOLONE SOD SUCC 40 MG VIAL IV SCH (13:00)
[2023-12-09 17:57] VITALS: BP 107/79; O2SAT 97
[2023-12-09] MEDS ORDERED: DEXTROSE 5 % AND 0.9 % NACL 1,000 ML IV SCH (18:15)
[2023-12-09] MEDS ORDERED: POLYETHYLENE GLYCOL 3350 17 GM BLIST.PACK PO SCH (21:00)
[2023-12-09 21:33] VITALS: O2SAT 100
[2023-12-10] VITALS (10 sets, daily range): BP systolic 101–122; BP diastolic 73–79; O2SAT 88–100
[2023-12-10] MEDS ORDERED: POTASSIUM CHLORIDE 20MEQ/100ML H2O PB IV NR (08:15)
[2023-12-10] MEDS ORDERED: MAGNESIUM SULFATE IN WATER 50 ML IV NR (08:15)
[2023-12-10 19:05] LABS: afb spe proc Concentration (.)
[2023-12-10 19:05] LABS: afb spe proc Concentration (.)
[2023-12-10] MEDS ORDERED: PIPERACILLIN/TAZOBACTAM SODIUM 3.375 GM VIAL IV ONE (22:56)
[2023-12-11] VITALS (8 sets, daily range): BP systolic 109–129; BP diastolic 70–73; O2SAT 90–100
[2023-12-11] MEDS ORDERED: PANTOPRAZOLE SODIUM 40 MG/VIAL VIAL ONE ×3 (00:06→16:13)
[2023-12-12 00:01] VITALS: BP 117/74; O2SAT 100
[2023-12-12 00:28] VITALS: O2SAT 90
[2023-12-12 04:43] VITALS: O2SAT 84
[2023-12-12] MEDS ORDERED: PANTOPRAZOLE SODIUM 40 MG/VIAL VIAL ONE ×2 (04:46→07:39)
[2023-12-12 08:21] VITALS: BP 141/80; O2SAT 95
[2023-12-12 09:33] LABS: HEMOGLOBIN 9.9 g/dL (13-16.00); MEAN CELL VOLUME 91.4 fL (80.0-100.00); MEAN CORPUSCULAR HEMOGLOBIN 31.1 pg (27.00-32.0); PLATELET COUNT 253 K/uL (150-450); RED BLOOD COUNT 3.17 M/uL (4.00-6.00); RED CELL DISTRIBUTION WIDTH 16.6 % (11.5-14.5)
[2023-12-12 10:18] LABS: ALBUMIN 2.2 gm/dL (3.4-5.0); BILIRUBIN TOTAL 0.37 mg/dL (0.3-1.2); CALCIUM 8.5 mg/dL (8.5-10.1); GLOBULINA 3.2 G/DL (2.4-3.5); POTASSIUM 3.67 mEq/L (3.5-5.1); TOTAL PROTEIN 5.4 gm/dL (6.4-8.2)
[2023-12-12 10:20] LABS: C-REACTIVE PROTEIN 0.76 MG/DL (0.00-0.29); CREATININE SERUM 0.26 mg/dL (0.70-1.30); GFR 351.68
[2023-12-12 10:47] LABS: ERYTHROCYTE SEDIMENTATION RATE 6 mm/hr
[2023-12-12] MEDS ORDERED: MINERAL OIL 30 ML BLIST.PACK PO STA (13:59)
[2023-12-12] MEDS ORDERED: DEXTROSE 5 % IN WATER 1,000 ML IV SCH (14:00)
[2023-12-12 16:00] VITALS: BP 111/62; O2SAT 96
[2023-12-12] MEDS ORDERED: AMINO ACIDS/PROTEIN HYDROLYS 30 ML BLIST.PACK PO SCH (17:00)
[2023-12-12 19:15] VITALS: O2SAT 97
[2023-12-12] MEDS ORDERED: METHYLPREDNISOLONE SOD SUCC 40 MG VIAL IV SCH (21:00)
[2023-12-13] VITALS: BP 100/65; O2SAT 98
[2023-12-13 04:44] VITALS: O2SAT 99
[2023-12-13] MEDS ORDERED: PANTOPRAZOLE SODIUM 40 MG/VIAL VIAL IV SCH (09:00)
[2023-12-13] MEDS ORDERED: MINERAL OIL 30 ML BLIST.PACK PO SCH (09:00)
[2023-12-13 09:39] VITALS: BP 124/72; O2SAT 99
[2023-12-13] MEDS ORDERED: MIDAZOLAM HCL 2 MG/2 ML VIAL IV STA (14:33)
[2023-12-13 16:39] VITALS: O2SAT 90
[2023-12-13 16:57] VITALS: BP 123/72; O2SAT 90
[2023-12-13] MEDS ORDERED: AMINO ACIDS 4.25 %/DEXTROSE 5% 1,000 ML PERIFERAL SCH (19:30)
[2023-12-13 20:04] VITALS: O2SAT 99
[2023-12-13] MEDS ORDERED: LACTULOSE 20 G/30 ML BLIST.PACK PO SCH (21:00)
[2023-12-13] MEDS ORDERED: POLYETHYLENE GLYCOL 3350 17 GM BLIST.PACK PO SCH (21:00)
[2023-12-14] VITALS (9 sets, daily range): BP systolic 115–139; BP diastolic 72–84; O2SAT 81–100
[2023-12-14 06:00] LABS: ABG PH 7.501 (7.35-7.45); ABG PO2 140.1 mmHg (80-100); BASE EXCESS 11.7 mmol/l; BICARBONATE 36.7 mmol/l (23-25); SaO2 99.4 %; Tco2 38.2 mmol/l; allen test SATISFACTORY; o2 100 %; puncture site RADIAL RIGHT
[2023-12-14 06:01] LABS: ABG PO2 45.5 mmHg (80-100); ABG pCO2 46.1 mmHg (35-45); BASE EXCESS 11.3 mmol/l; BICARBONATE 35.9 mmol/l (23-25); SaO2 87.1 %; Tco2 37.3 mmol/l; allen test SATISFACTORY; o2 50 %; puncture site RADIAL RIGHT
[2023-12-14 09:25] LABS: ABG PH 7.478 (7.35-7.45); ABG PO2 362.4 mmHg (80-100); BASE EXCESS 10.8 mmol/l; BICARBONATE 36.2 mmol/l (23-25); Tco2 37.7 mmol/l
[2023-12-14 10:38] LABS: ABG PH 7.498 (7.35-7.45); BASE EXCESS 9.8 mmol/l; BICARBONATE 34.4 mmol/l (23-25); SaO2 90.5 %; Tco2 35.8 mmol/l
[2023-12-14 10:40] LABS: ABG PO2 52.1 mmHg (80-100); ABG pCO2 45.4 mmHg (35-45); allen test SATISFACTORY; o2 28 %; puncture site RADIAL LEFT
[2023-12-14 10:40] LABS: allen test SATISFACTORY; o2 100 %; puncture site RADIAL LEFT
[2023-12-14 12:09] LABS: HEMATOCRIT 31.9 % (39.0-48.0); HEMOGLOBIN 10.8 g/dL (13-16.00); MEAN CELL VOLUME 90.3 fL (80.0-100.00); MEAN CORPUSCULAR HEMOGLOBIN 30.5 pg (27.00-32.0); MEAN CORPUSCULAR HGB CONC 33.8 g/dl (32.0-36.0); PLATELET COUNT 275 K/uL (150-450); RED BLOOD COUNT 3.53 M/uL (4.00-6.00); RED CELL DISTRIBUTION WIDTH 16.4 % (11.5-14.5)
[2023-12-14 12:32] LABS: CALCIUM 8.6 mg/dL (8.5-10.1); MAGNESIUM 1.8 mg/dL (1.8-2.4); PHOSPHOROUS 2.3 mg/dL (2.5-4.9)
[2023-12-14 12:57] LABS: GFR 505.08
[2023-12-14 12:58] LABS: CREATININE SERUM 0.19 mg/dL (0.70-1.30)
[2023-12-14 12:59] LABS: POTASSIUM 2.85 mEq/L (3.5-5.1)
[2023-12-14] MEDS ORDERED: AA 5 %/CALCIUM/LYTES/DEXT 20 % 2,000 ML CENTRAL SCH (17:00)
[2023-12-14] MEDS ORDERED: METHYLPREDNISOLONE SOD SUCC 40 MG VIAL IV SCH (21:00)
[2023-12-14] MEDS ORDERED: FAT EMULSIONS 500 ML IV SCH (21:00)
[2023-12-15] VITALS: BP 115/70; O2SAT 100
[2023-12-15 00:39] VITALS: O2SAT 100
[2023-12-15] MEDS ORDERED: POTASSIUM CHLORIDE 20MEQ/100ML H2O PB IV NR (07:00)
[2023-12-15 08:44] VITALS: BP 117/76; O2SAT 99
[2023-12-15 09:29] VITALS: O2SAT 98
[2023-12-15] MEDS ORDERED: POTASSIUM PHOS,M-BASIC-D-BASIC 3 MM/ML VIAL IV ONE (11:00)
[2023-12-15 16:56] VITALS: BP 113/74; O2SAT 98
[2023-12-15] MEDS ORDERED: ANIDULAFUNGIN 100 MG VIAL IV SCH (17:00)
[2023-12-15] MEDS ORDERED: PIPERACILLIN/TAZOBACTAM SODIUM 3.375 GM in 0.9 % SODIUM CHLORIDE 100 ML IV SCH (18:00)
[2023-12-15] MEDS ORDERED: PIPERACILLIN/TAZOBACTAM SODIUM 3.375 GM VIAL IV ONE ×2 (19:42→23:39)
[2023-12-15 19:46] VITALS: O2SAT 94
[2023-12-16] VITALS (9 sets, daily range): BP systolic 115–134; BP diastolic 59–74; O2SAT 94–100
[2023-12-16 08:19] LABS: HEMATOCRIT 32.7 % (39.0-48.0); HEMOGLOBIN 10.9 g/dL (13-16.00); MEAN CORPUSCULAR HEMOGLOBIN 30.6 pg (27.00-32.0); MEAN CORPUSCULAR HGB CONC 33.2 g/dl (32.0-36.0); PLATELET COUNT 228 K/uL (150-450); RED BLOOD COUNT 3.55 M/uL (4.00-6.00); RED CELL DISTRIBUTION WIDTH 17.3 % (11.5-14.5)
[2023-12-16 09:01] LABS: CALCIUM 8.4 mg/dL (8.5-10.1); MAGNESIUM 1.7 mg/dL (1.8-2.4); POTASSIUM 4.06 mEq/L (3.5-5.1)
[2023-12-16 09:09] LABS: CREATININE SERUM 0.23 mg/dL (0.70-1.30); GFR 405.14
[2023-12-16 09:11] LABS: PHOSPHOROUS 1.8 mg/dL (2.5-4.9)
[2023-12-16] MEDS ORDERED: MAGNESIUM SULFATE IN WATER 50 ML IV NR (10:00)
[2023-12-16] MEDS ORDERED: POTASSIUM PHOS,M-BASIC-D-BASIC 3 MM/ML VIAL IV NR (10:00)
[2023-12-16] MEDS ORDERED: PIPERACILLIN/TAZOBACTAM SODIUM 3.375 GM VIAL IV ONE ×3 (12:01→23:38)
[2023-12-16] MEDS ORDERED: METHYLPREDNISOLONE SOD SUCC 40 MG VIAL IV SCH (13:00)
[2023-12-16] MEDS ORDERED: FUROsemide 20 MG/2 ML VIAL IV SCH ×2 (17:00→21:00)
[2023-12-16] MEDS ORDERED: PANTOPRAZOLE SODIUM 40 MG/VIAL VIAL IV SCH (21:00)
[2023-12-17] VITALS (7 sets, daily range): BP systolic 106–128; BP diastolic 65–76; O2SAT 90–100
[2023-12-17] MEDS ORDERED: PIPERACILLIN/TAZOBACTAM SODIUM 3.375 GM VIAL IV ONE ×2 (05:15→08:36)
[2023-12-17 08:38] LABS: HEMATOCRIT 32.2 % (39.0-48.0); HEMOGLOBIN 10.8 g/dL (13-16.00); MEAN CELL VOLUME 91.8 fL (80.0-100.00); MEAN CORPUSCULAR HEMOGLOBIN 30.9 pg (27.00-32.0); MEAN CORPUSCULAR HGB CONC 33.7 g/dl (32.0-36.0); PLATELET COUNT 212 K/uL (150-450); RED BLOOD COUNT 3.51 M/uL (4.00-6.00)
[2023-12-17 09:01] LABS: CALCIUM 8.3 mg/dL (8.5-10.1); CREATININE SERUM 0.31 mg/dL (0.70-1.30); GFR 287.08; MAGNESIUM 1.9 mg/dL (1.8-2.4); POTASSIUM 3.72 mEq/L (3.5-5.1)
[2023-12-17 10:14] LABS: PHOSPHOROUS 1.6 mg/dL (2.5-4.9)
[2023-12-17] MEDS ORDERED: POTASSIUM PHOS,M-BASIC-D-BASIC 3 MM/ML VIAL IV NR (10:45)
[2023-12-17] MEDS ORDERED: THIAMINE HCL 100 MG/ML 2 ML VIAL IV SCH (12:00)
[2023-12-17] MEDS ORDERED: MULTIVIT INFUSN,ADULT 4,VIT K 10 ML VIAL IV SCH (12:00)
[2023-12-18] VITALS (8 sets, daily range): BP systolic 124–137; BP diastolic 55–71; O2SAT 92–100
[2023-12-18] MEDS ORDERED: FUROsemide 20 MG/2 ML VIAL IV SCH (09:00)
[2023-12-19] VITALS (8 sets, daily range): BP systolic 100–144; BP diastolic 65–83; O2SAT 90–100
[2023-12-19 09:02] LABS: HEMATOCRIT 29.5 % (39.0-48.0); MEAN CELL VOLUME 91.9 fL (80.0-100.00); MEAN CORPUSCULAR HGB CONC 33.7 g/dl (32.0-36.0); PLATELET COUNT 173 K/uL (150-450); RED BLOOD COUNT 3.21 M/uL (4.00-6.00); RED CELL DISTRIBUTION WIDTH 17.7 % (11.5-14.5)
[2023-12-19 09:41] LABS: INR 0.94; PARTIAL THROMBOPLASTIN TIME 29.8 SECONDS (22.0-34.0); PROTHROMBIN TIME 10.3 SECONDS (9.0-11.5)
[2023-12-19 09:53] LABS: ALBUMIN 2.2 gm/dL (3.4-5.0); BILIRUBIN TOTAL 0.42 mg/dL (0.3-1.2); BILIRUBIN,CONJUGATED 0.2 mg/dL (0.0-0.2); BILIRUBIN,UNCONJUGATED 0.22 mg/dL (0.0-0.6); CALCIUM 8.6 mg/dL (8.5-10.1); GFR 385.71; POTASSIUM 4.32 mEq/L (3.5-5.1); TOTAL PROTEIN 5.2 gm/dL (6.4-8.2)
[2023-12-19 10:01] LABS: CREATININE SERUM 0.24 mg/dL (0.70-1.30)
[2023-12-20 00:40] VITALS: BP 110/76
[2023-12-20 10:26] VITALS: O2SAT 94
[2023-12-20 13:49] VITALS: O2SAT 90
[2023-12-20 15:00] VITALS: BP 104/70; O2SAT 99
[2023-12-20] MEDS ORDERED: AA 5 %/CALCIUM/LYTES/DEXT 20 % 2,000 ML CENTRAL SCH (17:00)
[2023-12-20 18:00] VITALS: O2SAT 90
[2023-12-20] MEDS ORDERED: METHYLPREDNISOLONE SOD SUCC 40 MG VIAL IV SCH (21:00)
[2023-12-20] MEDS ORDERED: FAT EMULSIONS 500 ML IV SCH (21:00)
[2023-12-20 22:44] VITALS: O2SAT 89
[2023-12-21 01:07] VITALS: BP 124/82; O2SAT 98
[2023-12-21 07:20] LABS: HEMATOCRIT 31.6 % (39.0-48.0); HEMOGLOBIN 10.5 g/dL (13-16.00); MEAN CELL VOLUME 93.4 fL (80.0-100.00); MEAN CORPUSCULAR HEMOGLOBIN 31.2 pg (27.00-32.0); MEAN CORPUSCULAR HGB CONC 33.4 g/dl (32.0-36.0); PLATELET COUNT 173 K/uL (150-450); RED BLOOD COUNT 3.38 M/uL (4.00-6.00); RED CELL DISTRIBUTION WIDTH 17.8 % (11.5-14.5)
[2023-12-21 07:56] LABS: ALBUMIN 2.3 gm/dL (3.4-5.0); BILIRUBIN TOTAL 0.64 mg/dL (0.3-1.2); BILIRUBIN,CONJUGATED 0.34 mg/dL (0.0-0.2); BILIRUBIN,UNCONJUGATED 0.3 mg/dL (0.0-0.6); CALCIUM 8.2 mg/dL (8.5-10.1); POTASSIUM 4.84 mEq/L (3.5-5.1); TOTAL PROTEIN 5.3 gm/dL (6.4-8.2)
[2023-12-21 08:00] VITALS: BP 146/88; O2SAT 95
[2023-12-21 08:08] LABS: GFR 405.14
[2023-12-21 08:09] LABS: CREATININE SERUM 0.23 mg/dL (0.70-1.30); PHOSPHOROUS 1.9 mg/dL (2.5-4.9)
[2023-12-21] MEDS ORDERED: POTASSIUM PHOS,M-BASIC-D-BASIC 3 MM/ML VIAL IV NR (11:30)
[2023-12-21 13:46] VITALS: O2SAT 81
[2023-12-21 17:07] VITALS: BP 109/74
[2023-12-21 17:28] VITALS: O2SAT 90
[2023-12-21 19:42] VITALS: O2SAT 100
[2023-12-22] VITALS (9 sets, daily range): BP systolic 115–118; BP diastolic 62–78; O2SAT 81–100
[2023-12-22] MEDS ORDERED: METHYLPREDNISOLONE SOD SUCC 40 MG VIAL IV SCH (09:00)
[2023-12-22] MEDS ORDERED: MEROPENEM 500 MG/VIAL VIAL IV SCH (14:00)
[2023-12-22] MEDS ORDERED: levoFLOXacin IN DEXTROSE 5 % 150 ML IV SCH (17:00)
[2023-12-23] VITALS (8 sets, daily range): BP systolic 87–134; BP diastolic 57–74; O2SAT 94–100
[2023-12-23 05:46] LABS: HEMOGLOBIN 9.7 g/dL (13-16.00); MEAN CELL VOLUME 92.8 fL (80.0-100.00); MEAN CORPUSCULAR HEMOGLOBIN 32.1 pg (27.00-32.0); MEAN CORPUSCULAR HGB CONC 34.6 g/dl (32.0-36.0); PLATELET COUNT 165 K/uL (150-450); RED BLOOD COUNT 3.02 M/uL (4.00-6.00); RED CELL DISTRIBUTION WIDTH 18.6 % (11.5-14.5)
[2023-12-23 06:47] LABS: ALBUMIN 2.2 gm/dL (3.4-5.0); BILIRUBIN TOTAL 0.58 mg/dL (0.3-1.2); BILIRUBIN,CONJUGATED 0.27 mg/dL (0.0-0.2); BILIRUBIN,UNCONJUGATED 0.31 mg/dL (0.0-0.6); CALCIUM 8.1 mg/dL (8.5-10.1); GFR 426.46; PHOSPHOROUS 2.3 mg/dL (2.5-4.9); POTASSIUM 3.99 mEq/L (3.5-5.1)
[2023-12-23 06:54] LABS: CREATININE SERUM 0.22 mg/dL (0.70-1.30)
[2023-12-23] MEDS ORDERED: GLUCAGON 1 MG VIAL IV ONE (16:30)
[2023-12-23] MEDS ORDERED: SOD FERRIC GLUC COMPLX/SUCROSE 62.5 MG in 0.9 % SODIUM CHLORIDE 50 ML IV SCH (18:35)
[2023-12-23] MEDS ORDERED: FentaNYL CITRATE/PF 1,000 MCG in 0.9 % SODIUM CHLORIDE 100 ML IV SCH (19:45)
[2023-12-23 20:30] LABS: ABG PH 7.387 (7.35-7.45); ABG PO2 399.3 mmHg (80-100); ABG pCO2 50.4 mmHg (35-45); BASE EXCESS 3.5 mmol/l; BICARBONATE 29.6 mmol/l (23-25); Tco2 31.2 mmol/l
[2023-12-23 20:55] LABS: allen test SATISFACTORY; o2 100 %; puncture site RADIAL RIGHT
[2023-12-23] MEDS ORDERED: SOD FERRIC GLUC COMPLX/SUCROSE 62.5 MG/5 ML AMPUL IV ONE (21:18)
[2023-12-24] VITALS (8 sets, daily range): BP systolic 93–121; BP diastolic 64–84; O2SAT 99–100
[2023-12-24 08:49] LABS: ABG PH 7.397 (7.35-7.45); ABG PO2 178.6 mmHg (80-100); ABG pCO2 48.4 mmHg (35-45); BASE EXCESS 3.3 mmol/l; BICARBONATE 29.1 mmol/l (23-25); SaO2 99.6 %; Tco2 30.6 mmol/l
[2023-12-24 14:35] LABS: allen test SATISFACTORY; o2 40 %; puncture site RADIAL RIGHT
[2023-12-24 14:40] LABS: ABG PH 7.427 (7.35-7.45); ABG PO2 195.1 mmHg (80-100); ABG pCO2 48.4 mmHg (35-45); BASE EXCESS 5.6 mmol/l; BICARBONATE 31.1 mmol/l (23-25); SaO2 99.7 %; Tco2 32.6 mmol/l
[2023-12-24 14:41] LABS: allen test SATISFACTORY; o2 40 %; puncture site RADIAL RIGHT
[2023-12-25 04:00] VITALS: BP 119/71; O2SAT 100
[2023-12-25 07:07] VITALS: BP 92/64; O2SAT 100
[2023-12-25 07:19] LABS: CALCIUM 7.9 mg/dL (8.5-10.1); GFR 615.84; MAGNESIUM 1.9 mg/dL (1.8-2.4); PHOSPHOROUS 2.2 mg/dL (2.5-4.9); POTASSIUM 4.08 mEq/L (3.5-5.1)
[2023-12-25 07:24] LABS: CREATININE SERUM 0.16 mg/dL (0.70-1.30)
[2023-12-25 07:43] LABS: HEMATOCRIT 28.3 % (39.0-48.0); HEMOGLOBIN 9.6 g/dL (13-16.00); MEAN CELL VOLUME 94.2 fL (80.0-100.00); MEAN CORPUSCULAR HEMOGLOBIN 31.8 pg (27.00-32.0); MEAN CORPUSCULAR HGB CONC 33.8 g/dl (32.0-36.0); PLATELET COUNT 149 K/uL (150-450); RED BLOOD COUNT 3.01 M/uL (4.00-6.00); RED CELL DISTRIBUTION WIDTH 18.9 % (11.5-14.5)
[2023-12-25] MEDS ORDERED: POTASSIUM PHOS,M-BASIC-D-BASIC 3 MM/ML VIAL IV NR (09:45)
[2023-12-25 12:00] VITALS: BP 125/64; O2SAT 100
[2023-12-25 15:24] VITALS: BP 115/62; O2SAT 100
[2023-12-25 17:45] VITALS: BP 122/76
[2023-12-25 22:28] VITALS: O2SAT 100
[2023-12-26] VITALS (9 sets, daily range): BP systolic 118–139; BP diastolic 75–83; O2SAT 90–100
[2023-12-26 06:24] LABS: HEMATOCRIT 31.6 % (39.0-48.0); HEMOGLOBIN 10.7 g/dL (13-16.00); MEAN CELL VOLUME 94.5 fL (80.0-100.00); MEAN CORPUSCULAR HEMOGLOBIN 31.9 pg (27.00-32.0); MEAN CORPUSCULAR HGB CONC 33.8 g/dl (32.0-36.0); PLATELET COUNT 157 K/uL (150-450); RED BLOOD COUNT 3.34 M/uL (4.00-6.00); RED CELL DISTRIBUTION WIDTH 19.1 % (11.5-14.5)
[2023-12-26 06:57] LABS: INR 0.96; PARTIAL THROMBOPLASTIN TIME 29.4 SECONDS (22.0-34.0); PROTHROMBIN TIME 10.5 SECONDS (9.0-11.5)
[2023-12-26 07:04] LABS: ALBUMIN 2.4 gm/dL (3.4-5.0); BILIRUBIN TOTAL 0.74 mg/dL (0.3-1.2); BILIRUBIN,CONJUGATED 0.38 mg/dL (0.0-0.2); BILIRUBIN,UNCONJUGATED 0.36 mg/dL (0.0-0.6); CALCIUM 8.2 mg/dL (8.5-10.1); CHOL HDL RATIO 4.7 (0-5.0); CREATININE SERUM 0.15 mg/dL (0.70-1.30); GFR 663.45; GLOBULINA 3.1 G/DL (2.4-3.5); MAGNESIUM 1.9 mg/dL (1.8-2.4); POTASSIUM 4.35 mEq/L (3.5-5.1); TOTAL PROTEIN 5.5 gm/dL (6.4-8.2)
[2023-12-26 07:59] LABS: MANUAL PLATELET COUNT 214
[2023-12-26 09:10] LABS: UREA CLEARANCE 43.3 ML/MIN
[2023-12-26] MEDS ORDERED: IPRATROPIUM BROMIDE 0.5 MG/2.5 ML AMPUL.NEB IH SCH (13:00)
[2023-12-27] VITALS (8 sets, daily range): BP systolic 118–142; BP diastolic 62–85; O2SAT 80–99
[2023-12-27] MEDS ORDERED: DIATRIZOATE MEGLUMINE, SODIUM 30 ML BOTTLE PO NR (07:30)
[2023-12-28] VITALS (8 sets, daily range): BP systolic 104–118; BP diastolic 65–80; O2SAT 90–100
[2023-12-28 08:06] LABS: HEMATOCRIT 30.9 % (39.0-48.0); HEMOGLOBIN 10.3 g/dL (13-16.00); MEAN CELL VOLUME 95.4 fL (80.0-100.00); MEAN CORPUSCULAR HEMOGLOBIN 31.8 pg (27.00-32.0); MEAN CORPUSCULAR HGB CONC 33.3 g/dl (32.0-36.0); PLATELET COUNT 144 K/uL (150-450); RED BLOOD COUNT 3.23 M/uL (4.00-6.00); RED CELL DISTRIBUTION WIDTH 18.7 % (11.5-14.5)
[2023-12-28 08:58] LABS: ALBUMIN 2.4 gm/dL (3.4-5.0); BILIRUBIN TOTAL 0.92 mg/dL (0.3-1.2); CALCIUM 8.3 mg/dL (8.5-10.1); CREATININE SERUM 0.2 mg/dL (0.70-1.30); GFR 476.05; GLOBULINA 3.3 G/DL (2.4-3.5); MAGNESIUM 2.1 mg/dL (1.8-2.4); PHOSPHOROUS 2.3 mg/dL (2.5-4.9); POTASSIUM 4.47 mEq/L (3.5-5.1); TOTAL PROTEIN 5.7 gm/dL (6.4-8.2)
[2023-12-28] MEDS ORDERED: POTASSIUM PHOS,M-BASIC-D-BASIC 3 MM/ML VIAL IV NR (12:15)
[2023-12-29] VITALS: BP 122/86
[2023-12-29 08:00] VITALS: BP 119/69; O2SAT 96
[2023-12-29 13:07] VITALS: O2SAT 100
[2023-12-29 17:16] VITALS: O2SAT 100
[2023-12-29 18:20] VITALS: BP 111/75; O2SAT 96
[2023-12-29] MEDS ORDERED: FAT EMULSIONS 250 ML IV SCH (21:00)
[2023-12-29 23:23] VITALS: O2SAT 89
[2023-12-30] VITALS (7 sets, daily range): BP systolic 116–120; BP diastolic 77–80; O2SAT 87–100
[2023-12-30 08:21] LABS: HEMATOCRIT 33.5 % (39.0-48.0); HEMOGLOBIN 11.6 g/dL (13-16.00); MEAN CELL VOLUME 93.9 fL (80.0-100.00); MEAN CORPUSCULAR HEMOGLOBIN 32.6 pg (27.00-32.0); MEAN CORPUSCULAR HGB CONC 34.7 g/dl (32.0-36.0); PLATELET COUNT 163 K/uL (150-450); RED BLOOD COUNT 3.57 M/uL (4.00-6.00); RED CELL DISTRIBUTION WIDTH 18.4 % (11.5-14.5)
[2023-12-30 09:27] LABS: CALCIUM 8.5 mg/dL (8.5-10.1); GFR 615.84; MAGNESIUM 2.1 mg/dL (1.8-2.4); PHOSPHOROUS 2.1 mg/dL (2.5-4.9); POTASSIUM 3.92 mEq/L (3.5-5.1)
[2023-12-30 09:31] LABS: CREATININE SERUM 0.16 mg/dL (0.70-1.30)
[2023-12-30] MEDS ORDERED: POTASSIUM PHOS,M-BASIC-D-BASIC 3 MM/ML VIAL IV NR (11:00)
[2023-12-31] VITALS: BP 116/75; O2SAT 95
[2023-12-31 00:52] VITALS: O2SAT 100
[2023-12-31 05:24] VITALS: O2SAT 100
[2023-12-31 07:34] VITALS: O2SAT 100
[2023-12-31 08:00] VITALS: BP 100/60; O2SAT 96
[2023-12-31] MEDS ORDERED: SOD FERRIC GLUC COMPLX/SUCROSE 62.5 MG in 0.9 % SODIUM CHLORIDE 50 ML IV SCH (09:00)
[2023-12-31] MEDS ORDERED: MULTIVIT INFUSN,ADULT 4,VIT K 10 ML VIAL IV SCH (09:00)
[2023-12-31 16:00] VITALS: BP 115/67; O2SAT 95
[2024-01-01] VITALS (7 sets, daily range): BP systolic 101–120; BP diastolic 62–75; O2SAT 90–100
[2024-01-02] VITALS (8 sets, daily range): BP systolic 97–124; BP diastolic 63–76; O2SAT 80–100
[2024-01-02 07:05] LABS: HEMATOCRIT 28.9 % (39.0-48.0); HEMOGLOBIN 9.8 g/dL (13-16.00); MEAN CELL VOLUME 95.2 fL (80.0-100.00); MEAN CORPUSCULAR HEMOGLOBIN 32.2 pg (27.00-32.0); MEAN CORPUSCULAR HGB CONC 33.8 g/dl (32.0-36.0); PLATELET COUNT 182 K/uL (150-450); RED BLOOD COUNT 3.04 M/uL (4.00-6.00); RED CELL DISTRIBUTION WIDTH 17.8 % (11.5-14.5)
[2024-01-02 07:42] LABS: INR 1.01; PARTIAL THROMBOPLASTIN TIME 33.3 SECONDS (22.0-34.0)
[2024-01-02 07:52] LABS: HEMATOCRIT 27.8 % (39.0-48.0); HEMOGLOBIN 9.7 g/dL (13-16.00); MEAN CORPUSCULAR HEMOGLOBIN 32.3 pg (27.00-32.0); MEAN CORPUSCULAR HGB CONC 34.8 g/dl (32.0-36.0); PLATELET COUNT 174 K/uL (150-450); RED BLOOD COUNT 2.99 M/uL (4.00-6.00); RED CELL DISTRIBUTION WIDTH 17.9 % (11.5-14.5)
[2024-01-02 08:04] LABS: ALBUMIN 2.5 gm/dL (3.4-5.0); BILIRUBIN TOTAL 0.46 mg/dL (0.3-1.2); BILIRUBIN,CONJUGATED 0.24 mg/dL (0.0-0.2); BILIRUBIN,UNCONJUGATED 0.22 mg/dL (0.0-0.6); CALCIUM 7.9 mg/dL (8.5-10.1); CHOL HDL RATIO 4.6 (0-5.0); GFR 663.45; GLOBULINA 3.4 G/DL (2.4-3.5); MAGNESIUM 1.8 mg/dL (1.8-2.4); PHOSPHOROUS 2.6 mg/dL (2.5-4.9); POTASSIUM 3.87 mEq/L (3.5-5.1); TOTAL PROTEIN 5.9 gm/dL (6.4-8.2)
[2024-01-02 08:09] LABS: CREATININE SERUM 0.15 mg/dL (0.70-1.30)
[2024-01-02 10:05] LABS: UREA CLEARANCE 47.4 ML/MIN
[2024-01-03 02:16] VITALS: BP 112/59; O2SAT 98
[2024-01-03 08:49] VITALS: BP 101/60; O2SAT 97
[2024-01-03 10:21] VITALS: O2SAT 92
[2024-01-03] MEDS ORDERED: CLOTRIMAZOLE/BETAMETHASONE DIP 15 GM TUBE TOP SCH (17:00)
[2024-01-03 17:55] VITALS: BP 111/56; O2SAT 97
[2024-01-03 23:57] VITALS: O2SAT 100
[2024-01-04 00:47] VITALS: BP 106/60; O2SAT 100
[2024-01-04 04:37] VITALS: O2SAT 100
[2024-01-04 10:02] VITALS: BP 100/60; O2SAT 92
[2024-01-04 16:28] VITALS: BP 108/62; O2SAT 98
[2024-01-04 17:45] VITALS: O2SAT 99
[2024-01-04 22:08] VITALS: O2SAT 86
[2024-01-05 00:48] VITALS: BP 116/76; O2SAT 98
[2024-01-05 01:00] VITALS: O2SAT 100
[2024-01-05 05:00] VITALS: O2SAT 98
[2024-01-05 07:46] LABS: HEMATOCRIT 29.8 % (39.0-48.0); HEMOGLOBIN 10.1 g/dL (13-16.00); MEAN CELL VOLUME 92.8 fL (80.0-100.00); MEAN CORPUSCULAR HEMOGLOBIN 31.6 pg (27.00-32.0); MEAN CORPUSCULAR HGB CONC 34.1 g/dl (32.0-36.0); PLATELET COUNT 233 K/uL (150-450); RED BLOOD COUNT 3.21 M/uL (4.00-6.00); RED CELL DISTRIBUTION WIDTH 17.3 % (11.5-14.5)
[2024-01-05 08:00] VITALS: BP 111/57; O2SAT 97
[2024-01-05 08:28] LABS: ALBUMIN 2.6 gm/dL (3.4-5.0); BILIRUBIN TOTAL 0.41 mg/dL (0.3-1.2); CALCIUM 8.5 mg/dL (8.5-10.1); CREATININE SERUM 0.15 mg/dL (0.70-1.30); GFR 663.45; GLOBULINA 3.3 G/DL (2.4-3.5); MAGNESIUM 1.9 mg/dL (1.8-2.4); PHOSPHOROUS 3.6 mg/dL (2.5-4.9); POTASSIUM 4.26 mEq/L (3.5-5.1); TOTAL PROTEIN 5.9 gm/dL (6.4-8.2)
[2024-01-05 16:44] VITALS: BP 107/76; O2SAT 98
[2024-01-05 20:31] VITALS: O2SAT 99
[2024-01-06] VITALS (8 sets, daily range): BP systolic 108–122; BP diastolic 69–71; O2SAT 86–100
[2024-01-06] MEDS ORDERED: ACETYLCYSTEINE 200 MG/ML 30ML VIAL IH SCH (09:37)
[2024-01-06] MEDS ORDERED: LEVALBUTEROL HCL 0.63 MG/3 ML SOLUTION IH SCH (12:00)
[2024-01-07] VITALS: BP 141/82; O2SAT 96
[2024-01-07 05:22] VITALS: O2SAT 93
[2024-01-07 09:08] VITALS: BP 100/59; O2SAT 98
[2024-01-07 12:39] VITALS: O2SAT 100
[2024-01-07 15:28] VITALS: O2SAT 100
[2024-01-07 16:00] VITALS: BP 97/59; O2SAT 100
[2024-01-08 00:56] VITALS: BP 128/64; O2SAT 97
[2024-01-08 08:00] VITALS: BP 94/56; O2SAT 97
[2024-01-08] MEDS ORDERED: METOPROLOL SUCCINATE 25 MG TAB.SR.24H PO SCH (09:00)
[2024-01-08 12:44] VITALS: O2SAT 73
[2024-01-08 15:42] VITALS: O2SAT 100
[2024-01-08 16:07] VITALS: BP 91/55; O2SAT 100
[2024-01-08] MEDS ORDERED: FUROsemide 20 MG/2 ML VIAL IV SCH (16:51)
[2024-01-08] MEDS ORDERED: FAMOTIDINE/PF 20 MG/2 ML VIAL IV SCH (21:00)
[2024-01-08 22:17] VITALS: O2SAT 100
[2024-01-09] VITALS: BP 90/55
[2024-01-09 01:00] VITALS: O2SAT 100
[2024-01-09 05:57] VITALS: O2SAT 100
[2024-01-09 07:52] VITALS: BP 94/60; O2SAT 98
[2024-01-09 10:03] LABS: HEMATOCRIT 28.8 % (39.0-48.0); HEMOGLOBIN 9.8 g/dL (13-16.00); MEAN CELL VOLUME 92.8 fL (80.0-100.00); MEAN CORPUSCULAR HEMOGLOBIN 31.7 pg (27.00-32.0); MEAN CORPUSCULAR HGB CONC 34.2 g/dl (32.0-36.0); PLATELET COUNT 234 K/uL (150-450); RED BLOOD COUNT 3.11 M/uL (4.00-6.00); RED CELL DISTRIBUTION WIDTH 17.1 % (11.5-14.5)
[2024-01-09 11:21] LABS: PROTHROMBIN TIME 10.9 SECONDS (9.0-11.5)
[2024-01-09 11:22] LABS: ALBUMIN 2.3 gm/dL (3.4-5.0); BILIRUBIN TOTAL 0.41 mg/dL (0.3-1.2); BILIRUBIN,CONJUGATED 0.18 mg/dL (0.0-0.2); BILIRUBIN,UNCONJUGATED 0.23 mg/dL (0.0-0.6); CALCIUM 8.1 mg/dL (8.5-10.1); CHOL HDL RATIO 3.3 (0-5.0); CREATININE SERUM 0.38 mg/dL (0.70-1.30); GFR 226.97; GLOBULINA 3.6 G/DL (2.4-3.5); MAGNESIUM 1.9 mg/dL (1.8-2.4); TOTAL PROTEIN 5.9 gm/dL (6.4-8.2)
[2024-01-09 11:35] LABS: POTASSIUM 2.58 mEq/L (3.5-5.1)
[2024-01-09 11:38] LABS: UREA CLEARANCE 33.3 ML/MIN
[2024-01-09 12:52] LABS: PARTIAL THROMBOPLASTIN TIME 43.8 SECONDS (22.0-34.0)
[2024-01-09] MEDS ORDERED: POTASSIUM CHLORIDE 20MEQ/100ML H2O PB IV NR (13:00)
[2024-01-09 13:36] VITALS: O2SAT 89
[2024-01-09 16:25] VITALS: BP 91/58; O2SAT 100
[2024-01-10 00:28] VITALS: O2SAT 97
[2024-01-10 00:37] VITALS: BP 102/70; O2SAT 96
[2024-01-10 08:00] LABS: HEMATOCRIT 26.5 % (39.0-48.0); HEMOGLOBIN 9.3 g/dL (13-16.00); MEAN CELL VOLUME 93.2 fL (80.0-100.00); MEAN CORPUSCULAR HEMOGLOBIN 32.6 pg (27.00-32.0); PLATELET COUNT 235 K/uL (150-450); RED BLOOD COUNT 2.84 M/uL (4.00-6.00)
[2024-01-10] MEDS ORDERED: FUROsemide 20 MG/2 ML VIAL IV SCH (09:00)
[2024-01-10 09:28] LABS: CALCIUM 7.7 mg/dL (8.5-10.1); CREATININE SERUM 0.34 mg/dL (0.70-1.30); GFR 258.05; PHOSPHOROUS 2.9 mg/dL (2.5-4.9); POTASSIUM 3.06 mEq/L (3.5-5.1); TSH 0.45 uIU/mL (0.358-3.74)
[2024-01-10 10:29] VITALS: BP 118/78; O2SAT 98
[2024-01-10] MEDS ORDERED: POTASSIUM PHOS,M-BASIC-D-BASIC 3 MM/ML VIAL IV STA (12:06)
[2024-01-10] MEDS ORDERED: 0.9 % SODIUM CHLORIDE 1,000 ML IV SCH (12:15)
[2024-01-10] MEDS ORDERED: SODIUM CHLORIDE FOR INHALATION 1 VIAL.NEB IH NR (13:00)
[2024-01-10] MEDS ORDERED: POTASSIUM CHLORIDE 20MEQ/100ML H2O PB IV NR (13:00)
[2024-01-10] MEDS ORDERED: IPRATROPIUM BROMIDE 0.5 MG/2.5 ML AMPUL.NEB IH SCH (13:00)
[2024-01-10 13:45] LABS: URINE APPEARANCE Clear; URINE BILIRRUBIN Negative (NEGATIVE); URINE BLOOD Negative; URINE COLOR Yellow; URINE GLUCOSE Negative (NEGATIVE); URINE KETONE Negative (NEGATIVE); URINE LEUKOCYTE Trace; URINE NITRATE Negative; URINE PROTEIN Negative (NEGATIVE); URINE UROBILINOGEN 0.2 E.U./dl
[2024-01-10 13:46] LABS: URINE EPITHELIAL CELLS 3.5 uL (0.0-38.8); URINE RBC 7.9 uL (0.0-20.8)
[2024-01-10 13:49] LABS: URINE CAST 0.45 uL (0.0-1.40)
[2024-01-10 14:15] VITALS: O2SAT 96
[2024-01-10 16:00] VITALS: BP 105/73
[2024-01-10] MEDS ORDERED: SODIUM CHLORIDE FOR INHALATION 1 VIAL.NEB IH SCH (21:00)
[2024-01-11 00:33] VITALS: O2SAT 86
[2024-01-11 00:36] VITALS: BP 98/53; O2SAT 96
[2024-01-11 03:15] VITALS: O2SAT 92
[2024-01-11 08:00] VITALS: BP 100/63; O2SAT 95
[2024-01-11 08:34] LABS: CALCIUM 7.8 mg/dL (8.5-10.1); CREATININE SERUM 0.4 mg/dL (0.70-1.30); GFR 213.92; MAGNESIUM 2.1 mg/dL (1.8-2.4); PHOSPHOROUS 3.4 mg/dL (2.5-4.9); POTASSIUM 3.55 mEq/L (3.5-5.1)
[2024-01-11 18:23] VITALS: BP 114/47; O2SAT 95
[2024-01-11 21:01] VITALS: O2SAT 91
[2024-01-12] VITALS (7 sets, daily range): BP systolic 81–124; BP diastolic 55–67; O2SAT 81–99
[2024-01-12 12:07] LABS: CALCIUM 7.8 mg/dL (8.5-10.1); CREATININE SERUM 0.37 mg/dL (0.70-1.30); GFR 234.06; MAGNESIUM 2.1 mg/dL (1.8-2.4); PHOSPHOROUS 3.5 mg/dL (2.5-4.9); POTASSIUM 3.96 mEq/L (3.5-5.1)
[2024-01-12 12:14] LABS: URIC ACID 2.8 mg/dL (3.5-8.5)
[2024-01-13] VITALS (7 sets, daily range): BP systolic 90–120; BP diastolic 54–73; O2SAT 84–100
[2024-01-14 00:55] VITALS: O2SAT 100
[2024-01-14 01:46] VITALS: BP 121/72; O2SAT 98
[2024-01-14 07:38] LABS: HEMATOCRIT 29.7 % (39.0-48.0); HEMOGLOBIN 10.3 g/dL (13-16.00); MEAN CELL VOLUME 92.9 fL (80.0-100.00); MEAN CORPUSCULAR HEMOGLOBIN 32.2 pg (27.00-32.0); MEAN CORPUSCULAR HGB CONC 34.6 g/dl (32.0-36.0); PLATELET COUNT 290 K/uL (150-450); RED CELL DISTRIBUTION WIDTH 17.4 % (11.5-14.5)
[2024-01-14 08:00] VITALS: BP 95/56; O2SAT 96
[2024-01-14 08:02] LABS: CALCIUM 7.9 mg/dL (8.5-10.1); GFR 310.04; PHOSPHOROUS 3.2 mg/dL (2.5-4.9); POTASSIUM 4.89 mEq/L (3.5-5.1)
[2024-01-14 08:04] LABS: CREATININE SERUM 0.29 mg/dL (0.70-1.30)
[2024-01-14 17:00] VITALS: BP 108/62; O2SAT 97
[2024-01-14 21:07] VITALS: O2SAT 100
[2024-01-15 01:03] VITALS: BP 115/75
[2024-01-15 08:22] VITALS: BP 112/66; O2SAT 98
[2024-01-15 11:11] VITALS: O2SAT 100
[2024-01-15 17:00] VITALS: BP 131/63; O2SAT 97
[2024-01-16 00:40] VITALS: BP 110/64; O2SAT 99
[2024-01-16 00:46] VITALS: O2SAT 100
[2024-01-16 06:01] VITALS: O2SAT 100
[2024-01-16 06:28] LABS: PARTIAL THROMBOPLASTIN TIME 28.5 SECONDS (22.0-34.0); PROTHROMBIN TIME 10.9 SECONDS (9.0-11.5)
[2024-01-16 06:44] LABS: HEMATOCRIT 28.7 % (39.0-48.0); HEMOGLOBIN 9.6 g/dL (13-16.00); MEAN CELL VOLUME 95.3 fL (80.0-100.00); MEAN CORPUSCULAR HEMOGLOBIN 31.9 pg (27.00-32.0); MEAN CORPUSCULAR HGB CONC 33.5 g/dl (32.0-36.0); PLATELET COUNT 319 K/uL (150-450); RED BLOOD COUNT 3.01 M/uL (4.00-6.00); RED CELL DISTRIBUTION WIDTH 17.7 % (11.5-14.5)
[2024-01-16 06:48] LABS: ALBUMIN 2.1 gm/dL (3.4-5.0); BILIRUBIN TOTAL 0.32 mg/dL (0.3-1.2); BILIRUBIN,CONJUGATED 0.12 mg/dL (0.0-0.2); BILIRUBIN,UNCONJUGATED 0.2 mg/dL (0.0-0.6); CALCIUM 7.5 mg/dL (8.5-10.1); GFR 351.68; GLOBULINA 3.4 G/DL (2.4-3.5); MAGNESIUM 1.9 mg/dL (1.8-2.4); PHOSPHOROUS 2.7 mg/dL (2.5-4.9); POTASSIUM 4.34 mEq/L (3.5-5.1); TOTAL PROTEIN 5.5 gm/dL (6.4-8.2)
[2024-01-16 07:00] LABS: CREATININE SERUM 0.26 mg/dL (0.70-1.30)
[2024-01-16 07:59] LABS: MANUAL PLATELET COUNT 568
[2024-01-16 08:00] VITALS: BP 114/81
[2024-01-16 16:00] VITALS: BP 103/56; O2SAT 96
[2024-01-16 19:40] VITALS: O2SAT 92
[2024-01-17] VITALS (8 sets, daily range): BP systolic 104–118; BP diastolic 60–75; O2SAT 22–100
[2024-01-18] VITALS (8 sets, daily range): BP systolic 105–124; BP diastolic 63–72; O2SAT 86–100
[2024-01-18 09:22] LABS: HEMATOCRIT 28.1 % (39.0-48.0); HEMOGLOBIN 9.5 g/dL (13-16.00); MEAN CORPUSCULAR HEMOGLOBIN 32.2 pg (27.00-32.0); MEAN CORPUSCULAR HGB CONC 33.8 g/dl (32.0-36.0); PLATELET COUNT 281 K/uL (150-450); RED BLOOD COUNT 2.95 M/uL (4.00-6.00); RED CELL DISTRIBUTION WIDTH 17.6 % (11.5-14.5)
[2024-01-18 10:28] LABS: ALBUMIN 2.1 gm/dL (3.4-5.0); CALCIUM 7.7 mg/dL (8.5-10.1); CREATININE SERUM 0.33 mg/dL (0.70-1.30); GFR 267.09; PHOSPHOROUS 2.9 mg/dL (2.5-4.9); POTASSIUM 4.57 mEq/L (3.5-5.1)
[2024-01-18] MEDS ORDERED: APIXABAN 5 MG TABLET PO STA (11:41)
[2024-01-18] MEDS ORDERED: APIXABAN 5 MG TABLET PO SCH (21:00)
[2024-01-19 00:12] VITALS: O2SAT 77
[2024-01-19 01:08] VITALS: BP 128/88; O2SAT 97
[2024-01-19 03:38] VITALS: O2SAT 79
[2024-01-19 08:00] VITALS: BP 126/72; O2SAT 94
[2024-01-19 11:32] LABS: BASE EXCESS 1.5 mmol/l; BICARBONATE 32.4 mmol/l (23-25); SaO2 80.1 %
[2024-01-19 14:21] LABS: ABG PH 7.278 (7.35-7.45); ABG PO2 62.6 mmHg (80-100); BASE EXCESS 2.2 mmol/l; BICARBONATE 31.1 mmol/l (23-25); SaO2 88.3 %; Tco2 33.2 mmol/l
[2024-01-19 14:39] LABS: ABG PH 7.204 (7.35-7.45); ABG pCO2 84.2 mmHg (35-45)
[2024-01-19 14:40] LABS: ABG PO2 54.9 mmHg (80-100); allen test SATISFACTORY; o2 50 %; puncture site RADIAL RIGHT
[2024-01-19 14:41] LABS: ABG pCO2 68.1 mmHg (35-45); allen test SATISFACTORY; o2 100 %; puncture site RADIAL RIGHT
[2024-01-19] MEDS ORDERED: METHYLPREDNISOLONE SOD SUCC 40 MG VIAL IV SCH (17:00)
[2024-01-19] MEDS ORDERED: NOREPINEPHRINE BITARTRATE 8 MG in DEXTROSE 5 % IN WATER 250 ML IV SCH (17:30)
[2024-01-19] MEDS ORDERED: MEROPENEM 500 MG/VIAL VIAL IV SCH (18:00)
[2024-01-19] MEDS ORDERED: MIDAZOLAM HCL 50 MG/10 ML VIAL IV SCH (19:15)
[2024-01-19 19:37] LABS: HEMATOCRIT 29.6 % (39.0-48.0); HEMOGLOBIN 9.8 g/dL (13-16.00); MEAN CORPUSCULAR HEMOGLOBIN 31.1 pg (27.00-32.0); MEAN CORPUSCULAR HGB CONC 33.1 g/dl (32.0-36.0); PLATELET COUNT 249 K/uL (150-450); RED BLOOD COUNT 3.15 M/uL (4.00-6.00); RED CELL DISTRIBUTION WIDTH 17.7 % (11.5-14.5)
[2024-01-19 19:56] LABS: CALCIUM 7.4 mg/dL (8.5-10.1); CREATININE SERUM 0.58 mg/dL (0.70-1.30); GFR 139.33; MAGNESIUM 1.8 mg/dL (1.8-2.4); PHOSPHOROUS 4.1 mg/dL (2.5-4.9); POTASSIUM 3.5 mEq/L (3.5-5.1)
[2024-01-19] MEDS ORDERED: ENOXAPARIN SODIUM 40 MG/0.4 ML SYRINGE SUBCUTANEO SCH (21:00)
[2024-01-19 23:12] VITALS: BP 94/67; O2SAT 100
[2024-01-19] MEDS ORDERED: MIDAZOLAM HCL 50 MG in 0.9 % SODIUM CHLORIDE 50 ML IV SCH (23:30)
[2024-01-20] VITALS (23 sets, daily range): BP systolic 84–124; BP diastolic 48–75; O2SAT 100
[2024-01-20] MEDS ORDERED: 0.9 % SODIUM CHLORIDE 1,000 ML IV ONE (09:15)
[2024-01-20 13:50] LABS: ABG PH 7.252 (7.35-7.45); ABG PO2 203.8 mmHg (80-100); ABG pCO2 74.8 mmHg (35-45); BASE EXCESS 2.4 mmol/l; BICARBONATE 32.2 mmol/l (23-25); SaO2 99.5 %; Tco2 34.5 mmol/l; o2 90 %
[2024-01-20 13:51] LABS: allen test SATISFACTORY; puncture site RADIAL RIGHT
[2024-01-20 16:08] LABS: HEMATOCRIT 26.9 % (39.0-48.0); MEAN CELL VOLUME 93.9 fL (80.0-100.00); PLATELET COUNT 286 K/uL (150-450); RED BLOOD COUNT 2.87 M/uL (4.00-6.00); RED CELL DISTRIBUTION WIDTH 17.5 % (11.5-14.5)
[2024-01-20 16:09] LABS: HEMOGLOBIN 8.9 g/dL (13-16.00)
[2024-01-20] MEDS ORDERED: AMIODARONE HCL 50 MG/ML AMPUL IV ONE (16:30)
[2024-01-20] MEDS ORDERED: ANIDULAFUNGIN 100 MG VIAL IV ONE (19:15)
[2024-01-20] MEDS ORDERED: MIDAZOLAM HCL 100 MG in 0.9 % SODIUM CHLORIDE 100 ML IV SCH (21:45)
[2024-01-20] MEDS ORDERED: DIGOXIN 0.25 MG/ML AMPUL IV SCH (22:13)
[2024-01-20] MEDS ORDERED: MIDAZOLAM HCL 50 MG in 0.9 % SODIUM CHLORIDE 100 ML IV SCH (23:30)
[2024-01-21] VITALS (23 sets, daily range): BP systolic 94–126; BP diastolic 59–84; O2SAT 100
[2024-01-21 09:39] LABS: HEMATOCRIT 28.2 % (39.0-48.0); HEMOGLOBIN 9.4 g/dL (13-16.00); MEAN CELL VOLUME 94.4 fL (80.0-100.00); MEAN CORPUSCULAR HEMOGLOBIN 31.3 pg (27.00-32.0); MEAN CORPUSCULAR HGB CONC 33.2 g/dl (32.0-36.0); PLATELET COUNT 274 K/uL (150-450); RED BLOOD COUNT 2.99 M/uL (4.00-6.00); RED CELL DISTRIBUTION WIDTH 17.4 % (11.5-14.5)
[2024-01-21 09:51] LABS: CALCIUM 8.2 mg/dL (8.5-10.1); CREATININE SERUM 0.47 mg/dL (0.70-1.30); GFR 177.59; MAGNESIUM 2.5 mg/dL (1.8-2.4); PHOSPHOROUS 2.5 mg/dL (2.5-4.9); POTASSIUM 4.67 mEq/L (3.5-5.1)
[2024-01-21 10:11] LABS: ABG PH 7.265 (7.35-7.45); ABG PO2 85.5 mmHg (80-100); ABG pCO2 74.6 mmHg (35-45); BASE EXCESS 3.5 mmol/l; BICARBONATE 33.1 mmol/l (23-25); SaO2 94.8 %; Tco2 35.4 mmol/l; allen test SATISFACTORY; o2 70 %; puncture site RADIAL LEFT
[2024-01-21] MEDS ORDERED: CHLORHEXIDINE GLUCONATE 15ML BRUSH KIT MM SCH (10:36)
[2024-01-21] MEDS ORDERED: ANIDULAFUNGIN 100 MG VIAL IV SCH (17:00)
[2024-01-21] MEDS ORDERED: CARBOXYMETHYLCELLULOSE SODIUM 1 EACH DROPERETTE OP SCH (17:00)
[2024-01-22] VITALS (20 sets, daily range): BP systolic 96–126; BP diastolic 59–78; O2SAT 100
[2024-01-22 10:19] LABS: ABG PH 7.361 (7.35-7.45); ABG PO2 220.5 mmHg (80-100); BASE EXCESS 7.1 mmol/l; BICARBONATE 34.9 mmol/l (23-25); SaO2 99.7 %; Tco2 36.8 mmol/l; o2 60 %; puncture site RADIAL LEFT
[2024-01-22 10:20] LABS: allen test SATISFACTORY
[2024-01-22] MEDS ORDERED: SOD FERRIC GLUC COMPLX/SUCROSE 62.5 MG/5 ML AMPUL IV NR (14:00)
[2024-01-23] VITALS (14 sets, daily range): BP systolic 107–127; BP diastolic 65–87; O2SAT 96–100
[2024-01-23 08:24] LABS: ABG PH 7.422 (7.35-7.45); ABG PO2 145.4 mmHg (80-100); BASE EXCESS 8.6 mmol/l; BICARBONATE 35.1 mmol/l (23-25); SaO2 99.3 %; Tco2 36.7 mmol/l; allen test SATISFACTORY; o2 100 %; puncture site RADIAL RIGHT
[2024-01-23 08:33] LABS: HEMATOCRIT 27.8 % (39.0-48.0); MEAN CELL VOLUME 95.4 fL (80.0-100.00); MEAN CORPUSCULAR HEMOGLOBIN 30.4 pg (27.00-32.0); MEAN CORPUSCULAR HGB CONC 31.9 g/dl (32.0-36.0); PLATELET COUNT 256 K/uL (150-450); RED BLOOD COUNT 2.92 M/uL (4.00-6.00); RED CELL DISTRIBUTION WIDTH 17.2 % (11.5-14.5)
[2024-01-23 08:37] LABS: HEMOGLOBIN 8.9 g/dL (13-16.00)
[2024-01-23 08:43] LABS: ERYTHROCYTE SEDIMENTATION RATE 55 mm/hr
[2024-01-23 08:54] LABS: INR 1.02; PARTIAL THROMBOPLASTIN TIME 30.8 SECONDS (22.0-34.0); PROTHROMBIN TIME 11.1 SECONDS (9.0-11.5)
[2024-01-23] MEDS ORDERED: SOD FERRIC GLUC COMPLX/SUCROSE 62.5 MG in 0.9 % SODIUM CHLORIDE 50 ML IV SCH (09:00)
[2024-01-23 09:04] LABS: ALBUMIN 1.8 gm/dL (3.4-5.0); BILIRUBIN TOTAL 0.3 mg/dL (0.3-1.2); BILIRUBIN,CONJUGATED 0.14 mg/dL (0.0-0.2); BILIRUBIN,UNCONJUGATED 0.16 mg/dL (0.0-0.6); CALCIUM 8.5 mg/dL (8.5-10.1); CHOL HDL RATIO 6.2 (0-5.0); CREATININE SERUM 0.37 mg/dL (0.70-1.30); GFR 234.06; GLOBULINA 3.8 G/DL (2.4-3.5); MAGNESIUM 2.2 mg/dL (1.8-2.4); POTASSIUM 5.04 mEq/L (3.5-5.1); TOTAL PROTEIN 5.6 gm/dL (6.4-8.2)
[2024-01-23 09:28] LABS: C-REACTIVE PROTEIN 4.74 MG/DL (0.00-0.29)
[2024-01-23 10:17] LABS: UREA CLEARANCE 37.4 ML/MIN
[2024-01-23] MEDS ORDERED: FUROsemide 20 MG/2 ML VIAL IV SCH (12:15)
[2024-01-23 13:08] LABS: afb culture Negative (.); afb smear Negative (.)
[2024-01-23 13:08] LABS: afb culture Negative (.); afb smear Negative (.)
[2024-01-23] MEDS ORDERED: CEFTRIAXONE SODIUM 2,000 MG VIAL IV SCH (17:00)
[2024-01-24] VITALS (13 sets, daily range): BP systolic 119–150; BP diastolic 62–90; O2SAT 89–100
[2024-01-24 08:07] LABS: ABG PH 7.439 (7.35-7.45); ABG PO2 97.5 mmHg (80-100); ABG pCO2 53.2 mmHg (35-45); BASE EXCESS 9.2 mmol/l; BICARBONATE 35.2 mmol/l (23-25); Tco2 36.9 mmol/l
[2024-01-24 09:33] LABS: allen test SATISFACTORY; o2 35 %; puncture site RADIAL RIGHT
[2024-01-24] MEDS ORDERED: METHYLPREDNISOLONE SOD SUCC 40 MG VIAL IV SCH (17:00)
[2024-01-24 18:21] LABS: HEMATOCRIT 36.3 % (39.0-48.0); HEMOGLOBIN 12.3 g/dL (13-16.00); MEAN CORPUSCULAR HEMOGLOBIN 31.2 pg (27.00-32.0); MEAN CORPUSCULAR HGB CONC 33.9 g/dl (32.0-36.0); PLATELET COUNT 188 K/uL (150-450); RED BLOOD COUNT 3.94 M/uL (4.00-6.00); RED CELL DISTRIBUTION WIDTH 16.2 % (11.5-14.5)
[2024-01-24 18:47] LABS: CALCIUM 8.4 mg/dL (8.5-10.1); CREATININE SERUM 0.39 mg/dL (0.70-1.30); GFR 220.26; PHOSPHOROUS 4.2 mg/dL (2.5-4.9); POTASSIUM 3.92 mEq/L (3.5-5.1)
[2024-01-24] MEDS ORDERED: MIDAZOLAM HCL 50 MG in 0.9 % SODIUM CHLORIDE 100 ML IV SCH (21:45)
[2024-01-25] VITALS (11 sets, daily range): BP systolic 116–146; BP diastolic 78–96; O2SAT 95–100
[2024-01-25 09:32] LABS: ABG PH 7.431 (7.35-7.45); ABG pCO2 52.7 mmHg (35-45)
[2024-01-25 09:33] LABS: ABG PO2 71.5 mmHg (80-100); BASE EXCESS 8.2 mmol/l; BICARBONATE 34.3 mmol/l (23-25); Tco2 35.9 mmol/l; allen test SATISFACTORY; o2 35 %; puncture site RADIAL RIGHT
[2024-01-25] MEDS ORDERED: CEFAZOLIN SODIUM 1,000 MG VIAL IV SCH (16:30)
[2024-01-25] MEDS ORDERED: METHYLPREDNISOLONE SOD SUCC 40 MG VIAL IV SCH (21:00)
[2024-01-26] VITALS (12 sets, daily range): BP systolic 107–145; BP diastolic 69–91; O2SAT 98–100
[2024-01-26 09:39] LABS: ABG PH 7.368 (7.35-7.45); ABG PO2 114.4 mmHg (80-100); ABG pCO2 59.6 mmHg (35-45); BASE EXCESS 6.2 mmol/l; BICARBONATE 33.6 mmol/l (23-25); SaO2 98.4 %; Tco2 35.4 mmol/l
[2024-01-26 10:48] LABS: HEMATOCRIT 38.9 % (39.0-48.0); HEMOGLOBIN 12.9 g/dL (13-16.00); MEAN CORPUSCULAR HEMOGLOBIN 31.1 pg (27.00-32.0); MEAN CORPUSCULAR HGB CONC 33.1 g/dl (32.0-36.0); PLATELET COUNT 181 K/uL (150-450); RED BLOOD COUNT 4.14 M/uL (4.00-6.00); RED CELL DISTRIBUTION WIDTH 17.1 % (11.5-14.5)
[2024-01-26 11:13] LABS: o2 35 %; puncture site RADIAL RIGHT
[2024-01-26 11:36] LABS: ALBUMIN 1.8 gm/dL (3.4-5.0); BILIRUBIN TOTAL 2.16 mg/dL (0.3-1.2); CREATININE SERUM 0.31 mg/dL (0.70-1.30); GFR 287.08; GLOBULINA 2.8 G/DL (2.4-3.5); MAGNESIUM 2.2 mg/dL (1.8-2.4); PHOSPHOROUS 3.3 mg/dL (2.5-4.9); POTASSIUM 4.17 mEq/L (3.5-5.1); TOTAL PROTEIN 4.6 gm/dL (6.4-8.2)
[2024-01-27 03:30] VITALS: BP 136/79; O2SAT 100
[2024-01-27 06:47] VITALS: BP 111/77; O2SAT 100
[2024-01-27] MEDS ORDERED: FUROsemide 20 MG/2 ML VIAL IV STA (09:44)
[2024-01-27 10:57] LABS: ABG PO2 336.4 mmHg (80-100); ABG pCO2 64.5 mmHg (35-45); BASE EXCESS 7.6 mmol/l; BICARBONATE 35.6 mmol/l (23-25); SaO2 99.9 %
[2024-01-27 10:58] LABS: Tco2 37.6 mmol/l; allen test SATISFACTORY; o2 35 %; puncture site RADIAL RIGHT
[2024-01-27 12:00] VITALS: BP 139/90; O2SAT 99
[2024-01-27] MEDS ORDERED: FUROsemide 20 MG/2 ML VIAL IV SCH (13:00)
[2024-01-27] MEDS ORDERED: ALBUMIN HUMAN 100 ML VIAL IV SCH (13:00)
[2024-01-27 13:57] VITALS: BP 142/89; O2SAT 100
[2024-01-27 15:23] VITALS: BP 138/87; O2SAT 100
[2024-01-27 20:07] VITALS: BP 130/82; O2SAT 99
[2024-01-28] VITALS (7 sets, daily range): BP systolic 108–134; BP diastolic 71–80; O2SAT 96–100
[2024-01-28 06:08] LABS: ABG PH 7.475 (7.35-7.45); ABG PO2 124.5 mmHg (80-100); ABG pCO2 55.9 mmHg (35-45); BASE EXCESS 13.9 mmol/l; BICARBONATE 40.2 mmol/l (23-25); SaO2 99.1 %; Tco2 41.9 mmol/l
[2024-01-28 06:09] LABS: allen test SATISFACTORY; o2 35 %; puncture site RADIAL RIGHT
[2024-01-28 07:47] LABS: HEMATOCRIT 36.5 % (39.0-48.0); MEAN CELL VOLUME 94.9 fL (80.0-100.00); MEAN CORPUSCULAR HEMOGLOBIN 31.3 pg (27.00-32.0); PLATELET COUNT 173 K/uL (150-450); RED BLOOD COUNT 3.85 M/uL (4.00-6.00); RED CELL DISTRIBUTION WIDTH 17.1 % (11.5-14.5)
[2024-01-28 08:06] LABS: ALBUMIN 2.5 gm/dL (3.4-5.0); BILIRUBIN TOTAL 2.14 mg/dL (0.3-1.2); CALCIUM 7.9 mg/dL (8.5-10.1); GFR 426.46; GLOBULINA 2.6 G/DL (2.4-3.5); MAGNESIUM 2.1 mg/dL (1.8-2.4); PHOSPHOROUS 2.2 mg/dL (2.5-4.9); POTASSIUM 3.68 mEq/L (3.5-5.1); TOTAL PROTEIN 5.1 gm/dL (6.4-8.2)
[2024-01-28 08:14] LABS: CREATININE SERUM 0.22 mg/dL (0.70-1.30)
[2024-01-28] MEDS ORDERED: SILVER SULFADIAZINE 50 GM,ZINC OXIDE 30 GM,NYSTATIN 30 GM TOP PRN (14:15)
[2024-01-28] MEDS ORDERED: AA 5 %/CALCIUM/LYTES/DEXT 20 % 2,000 ML CENTRAL SCH (17:00)
[2024-01-28] MEDS ORDERED: FAT EMULSIONS 250 ML EMULSION IV SCH (21:00)
[2024-01-28] MEDS ORDERED: FAT EMULSIONS 250 ML IV SCH (21:00)
[2024-01-29 04:00] VITALS: BP 177/71; O2SAT 98
[2024-01-29 05:57] LABS: ABG PH 7.509 (7.35-7.45); ABG PO2 84.4 mmHg (80-100); ABG pCO2 47.7 mmHg (35-45); BASE EXCESS 12.2 mmol/l; BICARBONATE 37.1 mmol/l (23-25); SaO2 97.6 %; Tco2 38.6 mmol/l
[2024-01-29 06:25] LABS: allen test SATISFACTORY; o2 35 %; puncture site RADIAL RIGHT
[2024-01-29 07:37] VITALS: BP 134/78; O2SAT 97
[2024-01-29 12:00] VITALS: BP 124/76; O2SAT 100
[2024-01-29 15:15] VITALS: BP 124/76; O2SAT 100
[2024-01-29] MEDS ORDERED: DILTIAZEM HCL 30 MG TABLET PO SCH (17:00)
[2024-01-29 20:46] VITALS: BP 141/78; O2SAT 100
[2024-01-29 23:34] VITALS: BP 134/72; O2SAT 98
[2024-01-30 04:30] VITALS: BP 137/84; O2SAT 99
[2024-01-30 06:42] LABS: HEMATOCRIT 35.1 % (39.0-48.0); HEMOGLOBIN 11.5 g/dL (13-16.00); MEAN CELL VOLUME 94.5 fL (80.0-100.00); MEAN CORPUSCULAR HEMOGLOBIN 30.9 pg (27.00-32.0); MEAN CORPUSCULAR HGB CONC 32.7 g/dl (32.0-36.0); PLATELET COUNT 168 K/uL (150-450); RED BLOOD COUNT 3.72 M/uL (4.00-6.00); RED CELL DISTRIBUTION WIDTH 17.5 % (11.5-14.5)
[2024-01-30 07:02] LABS: ALBUMIN 2.3 gm/dL (3.4-5.0); BILIRUBIN TOTAL 3.45 mg/dL (0.3-1.2); CALCIUM 8.3 mg/dL (8.5-10.1); CHOL HDL RATIO 11.7 (0-5.0); GLOBULINA 2.9 G/DL (2.4-3.5); MAGNESIUM 2.2 mg/dL (1.8-2.4); POTASSIUM 3.48 mEq/L (3.5-5.1); TOTAL PROTEIN 5.2 gm/dL (6.4-8.2)
[2024-01-30 07:07] LABS: CREATININE SERUM 0.16 mg/dL (0.70-1.30); GFR 615.84
[2024-01-30 07:19] VITALS: BP 126/83; O2SAT 99
[2024-01-30 07:44] LABS: INR 1.01; PARTIAL THROMBOPLASTIN TIME 29.6 SECONDS (22.0-34.0); PROTHROMBIN TIME 10.5 SECONDS (9.0-11.5)
[2024-01-30 08:25] LABS: ABG PH 7.448 (7.35-7.45); ABG PO2 95.2 mmHg (80-100); SaO2 97.9 %
[2024-01-30 08:26] LABS: ABG pCO2 53.3 mmHg (35-45); BICARBONATE 36.1 mmol/l (23-25); Tco2 37.7 mmol/l; allen test SATISFACTORY; o2 35 %; puncture site RADIAL LEFT
[2024-01-30] MEDS ORDERED: IPRATROPIUM BROMIDE 0.5 MG/2.5 ML AMPUL.NEB IH NR (10:00)
[2024-01-30 12:30] VITALS: BP 138/75; O2SAT 98
[2024-01-30] MEDS ORDERED: IPRATROPIUM BROMIDE 0.5 MG/2.5 ML AMPUL.NEB IH SCH (13:00)
[2024-01-30] MEDS ORDERED: ANIDULAFUNGIN 100 MG VIAL IV NR (14:00)
[2024-01-30 16:00] VITALS: BP 145/78; O2SAT 98
[2024-01-30 20:00] VITALS: BP 136/88; O2SAT 100
[2024-01-30 23:05] VITALS: BP 135/79; O2SAT 100
[2024-01-31 04:00] VITALS: BP 150/83; O2SAT 100
[2024-01-31 06:53] LABS: HEMATOCRIT 31.3 % (39.0-48.0); HEMOGLOBIN 10.3 g/dL (13-16.00); MEAN CELL VOLUME 95.8 fL (80.0-100.00); MEAN CORPUSCULAR HEMOGLOBIN 31.7 pg (27.00-32.0); MEAN CORPUSCULAR HGB CONC 33.1 g/dl (32.0-36.0); PLATELET COUNT 173 K/uL (150-450); RED BLOOD COUNT 3.26 M/uL (4.00-6.00); RED CELL DISTRIBUTION WIDTH 17.5 % (11.5-14.5)
[2024-01-31 07:04] LABS: ALBUMIN 1.9 gm/dL (3.4-5.0); ALKALINE PHOSPHATASE 256 U/L (50-136); ALT/SGPT 48 U/L (12-78); AST/SGOT 27 U/L (15-37); BILIRUBIN TOTAL 2.63 mg/dL (0.3-1.2); BLOOD UREA NITROGEN 22 mg/dL (7-18); CARBON DIOXIDE 37 mEq/L (21-32); CHLORIDE 99 mmol/L (98-107); GLOBULINA 3.2 G/DL (2.4-3.5); GLUCOSE FASTING 122 mg/dL (65-100); OSMOLALITY SERUM 282 MOSM/KG (275-295); PHOSPHOROUS 2.2 mg/dL (2.5-4.9); SODIUM 139 mmol/L (136-145); TOTAL PROTEIN 5.1 gm/dL (6.4-8.2)
[2024-01-31 07:06] LABS: URINE APPEARANCE Clear; URINE BILIRRUBIN Moderate (NEGATIVE); URINE BLOOD Negative; URINE COLOR Dark Yellow; URINE GLUCOSE Negative (NEGATIVE); URINE KETONE Negative (NEGATIVE); URINE LEUKOCYTE Trace; URINE NITRATE Negative; URINE PROTEIN 30 (NEGATIVE)
[2024-01-31 07:08] LABS: URINE CAST 1.52 uL (0.0-1.40); URINE EPITHELIAL CELLS 26.1 uL (0.0-38.8); URINE RBC 25.4 uL (0.0-20.8); URINE WBC 33.6 uL (0.0-23.2)
[2024-01-31 07:27] LABS: BUN CREA RATIO 146 (7.0-25.0); GFR 663.51
[2024-01-31 07:28] LABS: ANION GAP 6 (10.0-20.0)
[2024-01-31 07:29] LABS: POTASSIUM 2.96 mEq/L (3.5-5.1)
[2024-01-31 07:33] VITALS: BP 112/69; O2SAT 100
[2024-01-31 07:35] LABS: CREATININE SERUM < 0.15 mg/dL (0.70-1.30)
[2024-01-31] MEDS ORDERED: POTASSIUM CHLORIDE 20MEQ/100ML H2O PB IV ONE (08:00)
[2024-01-31 09:34] LABS: ABG PO2 58.1 mmHg (80-100); ABG pCO2 64.6 mmHg (35-45); SaO2 89.6 %
[2024-01-31 09:35] LABS: BASE EXCESS 8.6 mmol/l; BICARBONATE 36.5 mmol/l (23-25); Tco2 38.5 mmol/l; allen test SATISFACTORY; o2 50 %; puncture site RADIAL RIGHT
[2024-01-31 12:00] VITALS: BP 103/63; O2SAT 100
[2024-01-31] MEDS ORDERED: ANIDULAFUNGIN 100 MG VIAL IV SCH (12:00)
[2024-01-31] MEDS ORDERED: POTASSIUM PHOS,M-BASIC-D-BASIC 3 MM/ML VIAL IV ONE (12:00)
[2024-01-31 15:19] VITALS: BP 113/62; O2SAT 100
[2024-01-31 20:00] VITALS: BP 114/61; O2SAT 100
[2024-01-31 23:26] VITALS: BP 124/72; O2SAT 97
[2024-02-01] VITALS (7 sets, daily range): BP systolic 98–125; BP diastolic 57–70; O2SAT 98–100
[2024-02-01 06:29] LABS: HEMATOCRIT 29.3 % (39.0-48.0); HEMOGLOBIN 9.6 g/dL (13-16.00); MEAN CELL VOLUME 95.6 fL (80.0-100.00); MEAN CORPUSCULAR HEMOGLOBIN 31.3 pg (27.00-32.0); MEAN CORPUSCULAR HGB CONC 32.8 g/dl (32.0-36.0); PLATELET COUNT 166 K/uL (150-450); RED BLOOD COUNT 3.07 M/uL (4.00-6.00); RED CELL DISTRIBUTION WIDTH 17.8 % (11.5-14.5)
[2024-02-01 07:11] LABS: ALBUMIN 1.6 gm/dL (3.4-5.0); ALKALINE PHOSPHATASE 268 U/L (50-136); ALT/SGPT 39 U/L (12-78); ANION GAP 6 (10.0-20.0); AST/SGOT 30 U/L (15-37); BILIRUBIN TOTAL 2.26 mg/dL (0.3-1.2); BILIRUBIN,CONJUGATED 1.73 mg/dL (0.0-0.2); BILIRUBIN,UNCONJUGATED 0.53 mg/dL (0.0-0.6); BLOOD UREA NITROGEN 26 mg/dL (7-18); CARBON DIOXIDE 33 mEq/L (21-32); CHLORIDE 105 mmol/L (98-107); GLUCOSE FASTING 101 mg/dL (65-100); OSMOLALITY SERUM 286 MOSM/KG (275-295); PHOSPHOROUS 2.4 mg/dL (2.5-4.9); POTASSIUM 3.09 mEq/L (3.5-5.1); SODIUM 141 mmol/L (136-145); TOTAL PROTEIN 4.1 gm/dL (6.4-8.2)
[2024-02-01 07:12] LABS: BUN CREA RATIO 173 (7.0-25.0); CREATININE SERUM < 0.15 mg/dL (0.70-1.30); GFR 663.51
[2024-02-01 08:18] LABS: ABG PH 7.355 (7.35-7.45); ABG PO2 78.7 mmHg (80-100); BASE EXCESS 7.7 mmol/l; BICARBONATE 35.9 mmol/l (23-25); SaO2 95.1 %; Tco2 37.9 mmol/l
[2024-02-01 08:29] LABS: ABG pCO2 65.7 mmHg (35-45)
[2024-02-01 08:32] LABS: allen test SATISFACTORY; o2 35 %; puncture site RADIAL RIGHT
[2024-02-01] MEDS ORDERED: POTASSIUM PHOS,M-BASIC-D-BASIC 3 MM/ML VIAL IV ONE (13:00)
[2024-02-01] MEDS ORDERED: MEROPENEM 500 MG/VIAL VIAL IV SCH (14:00)
[2024-02-01] MEDS ORDERED: POTASSIUM CHLORIDE 20MEQ/100ML H2O PB IV NR (16:00)
[2024-02-01] MEDS ORDERED: ACETAMINOPHEN 160MG/5 ML BLIST.PACK PO PRN (19:30)
[2024-02-02 04:23] VITALS: BP 115/77; O2SAT 100
[2024-02-02 07:32] VITALS: BP 132/91; O2SAT 95
[2024-02-02 09:14] LABS: ABG PH 7.453 (7.35-7.45); ABG PO2 108.6 mmHg (80-100); ABG pCO2 48.9 mmHg (35-45); BASE EXCESS 8.1 mmol/l; BICARBONATE 33.5 mmol/l (23-25); SaO2 98.6 %
[2024-02-02 09:15] LABS: allen test SATISFACTORY; o2 35 %; puncture site RADIAL RIGHT
[2024-02-02] MEDS ORDERED: ACETAMINOPHEN 160 MG/5 ML ML PO PRN (09:45)
[2024-02-02 10:15] LABS: ABG PO2 95.4 mmHg (80-100); ABG pCO2 49.3 mmHg (35-45); BASE EXCESS 8.9 mmol/l; BICARBONATE 34.3 mmol/l (23-25); Tco2 35.8 mmol/l
[2024-02-02 10:16] LABS: allen test SATISFACTORY; o2 35 %; puncture site RADIAL RIGHT
[2024-02-02 12:00] VITALS: BP 109/60; BP 123/76; O2SAT 100
[2024-02-02] MEDS ORDERED: FUROsemide 20 MG/2 ML VIAL IV SCH (12:14)
[2024-02-02 15:12] VITALS: BP 102/70; O2SAT 100
[2024-02-02 20:34] VITALS: BP 96/55; O2SAT 100
[2024-02-02 23:12] VITALS: BP 100/67; O2SAT 100
[2024-02-03 04:00] VITALS: BP 92/56; O2SAT 100
[2024-02-03 07:15] VITALS: BP 100/70; O2SAT 100
[2024-02-03 09:08] LABS: ABG PH 7.479 (7.35-7.45); ABG PO2 101.9 mmHg (80-100); ABG pCO2 51.1 mmHg (35-45); BASE EXCESS 11.6 mmol/l; BICARBONATE 37.1 mmol/l (23-25); SaO2 98.5 %; Tco2 38.7 mmol/l
[2024-02-03 09:09] LABS: allen test SATISFACTORY; o2 40 %; puncture site RADIAL RIGHT
[2024-02-03 10:21] LABS: HEMATOCRIT 29.9 % (39.0-48.0); HEMOGLOBIN 9.8 g/dL (13-16.00); MEAN CELL VOLUME 95.1 fL (80.0-100.00); MEAN CORPUSCULAR HEMOGLOBIN 31.2 pg (27.00-32.0); MEAN CORPUSCULAR HGB CONC 32.8 g/dl (32.0-36.0); RED BLOOD COUNT 3.14 M/uL (4.00-6.00)
[2024-02-03 11:11] LABS: ANION GAP 3 (10.0-20.0); BLOOD UREA NITROGEN 21 mg/dL (7-18); CALCIUM 7.4 mg/dL (8.5-10.1); CHLORIDE 101 mmol/L (98-107); GLUCOSE FASTING 65 mg/dL (65-100); OSMOLALITY SERUM 282 MOSM/KG (275-295); PHOSPHOROUS 2.5 mg/dL (2.5-4.9); POTASSIUM 3.56 mEq/L (3.5-5.1); SODIUM 141 mmol/L (136-145)
[2024-02-03 11:29] LABS: BUN CREA RATIO 140 (7.0-25.0); GFR 663.51
[2024-02-03 11:30] LABS: CARBON DIOXIDE 41 mEq/L (21-32); CREATININE SERUM < 0.15 mg/dL (0.70-1.30)
[2024-02-03 11:35] LABS: PLATELET COUNT 132 K/uL (150-450)
[2024-02-03 12:00] VITALS: BP 94/65; O2SAT 100
[2024-02-03] MEDS ORDERED: ANIDULAFUNGIN 100 MG VIAL IV SCH (12:00)
[2024-02-03 15:22] VITALS: BP 102/79; O2SAT 100
[2024-02-03] MEDS ORDERED: AMINO ACIDS/PROTEIN HYDROLYS 30 ML BLIST.PACK NGT SCH (17:00)
[2024-02-03] MEDS ORDERED: FF) Voriconazole 200 MG VIAL IV SCH (17:00)
[2024-02-03 20:07] VITALS: BP 89/66; O2SAT 100
[2024-02-03] MEDS ORDERED: levoFLOXacin IN DEXTROSE 5 % 150 ML IV SCH (21:00)
[2024-02-03 23:04] VITALS: BP 85/68; O2SAT 100
[2024-02-04 04:01] VITALS: BP 102/69; O2SAT 100
[2024-02-04 07:58] VITALS: BP 103/74; O2SAT 98
[2024-02-04 08:26] LABS: MEAN CELL VOLUME 93.3 fL (80.0-100.00); MEAN CORPUSCULAR HEMOGLOBIN 31.5 pg (27.00-32.0); MEAN CORPUSCULAR HGB CONC 33.7 g/dl (32.0-36.0); RED BLOOD COUNT 3.11 M/uL (4.00-6.00); RED CELL DISTRIBUTION WIDTH 17.1 % (11.5-14.5)
[2024-02-04 08:39] LABS: HEMOGLOBIN 9.8 g/dL (13-16.00)
[2024-02-04 08:40] LABS: PLATELET COUNT 102 K/uL (150-450)
[2024-02-04 08:48] LABS: ALBUMIN 1.8 gm/dL (3.4-5.0); ALKALINE PHOSPHATASE 464 U/L (50-136); ALT/SGPT 44 U/L (12-78); AST/SGOT 70 U/L (15-37); BILIRUBIN TOTAL 1.66 mg/dL (0.3-1.2); CALCIUM 7.4 mg/dL (8.5-10.1); CARBON DIOXIDE 37 mEq/L (21-32); CHLORIDE 101 mmol/L (98-107); GLUCOSE FASTING 68 mg/dL (65-100); OSMOLALITY SERUM 285 MOSM/KG (275-295); PHOSPHOROUS 2.3 mg/dL (2.5-4.9); SODIUM 142 mmol/L (136-145); TOTAL PROTEIN 4.8 gm/dL (6.4-8.2)
[2024-02-04 08:51] LABS: ANION GAP 7 (10.0-20.0); BUN CREA RATIO 153 (7.0-25.0); GFR 663.51
[2024-02-04 08:53] LABS: BLOOD UREA NITROGEN 23 mg/dL (7-18); CREATININE SERUM < 0.15 mg/dL (0.70-1.30)
[2024-02-04] MEDS ORDERED: FUROsemide 20 MG/2 ML VIAL IV SCH (09:00)
[2024-02-04 09:02] LABS: ABG PH 7.481 (7.35-7.45); ABG PO2 97.3 mmHg (80-100); ABG pCO2 49.8 mmHg (35-45); BICARBONATE 36.4 mmol/l (23-25); SaO2 98.2 %; Tco2 37.9 mmol/l
[2024-02-04 09:20] LABS: POTASSIUM 2.83 mEq/L (3.5-5.1)
[2024-02-04 10:13] LABS: allen test SATISFACTORY; puncture site RADIAL RIGHT
[2024-02-04 10:14] LABS: o2 35 %
[2024-02-04] MEDS ORDERED: POTASSIUM CHLORIDE 20MEQ/100ML H2O PB IV SCH (10:28)
[2024-02-04] MEDS ORDERED: MAGNESIUM SULFATE IN WATER 50 ML IV NR (10:28)
[2024-02-04 12:00] VITALS: BP 95/70; O2SAT 97
[2024-02-04] MEDS ORDERED: CEFTAZIDIME/AVIBACTAM 2.5 GM VIAL IV SCH (13:40)
[2024-02-04 15:06] VITALS: BP 104/79; O2SAT 98
[2024-02-04 15:13] LABS: ABG PH 7.405 (7.35-7.45); ABG PO2 72.2 mmHg (80-100); ABG pCO2 59.5 mmHg (35-45); SaO2 94.8 %
[2024-02-04 15:14] LABS: BASE EXCESS 9.3 mmol/l; BICARBONATE 36.4 mmol/l (23-25); Tco2 38.2 mmol/l; allen test NO SATISFACTORY; o2 35 %; puncture site RADIAL RIGHT
[2024-02-04] MEDS ORDERED: FF) Voriconazole 200 MG VIAL IV SCH (17:00)
[2024-02-04 20:00] VITALS: BP 94/71; O2SAT 100
[2024-02-04 23:34] VITALS: BP 94/71; O2SAT 100
[2024-02-05 04:14] VITALS: BP 96/70; O2SAT 100
[2024-02-05 07:27] VITALS: BP 92/61; O2SAT 100
[2024-02-05 08:06] LABS: ANION GAP 9 (10.0-20.0); BLOOD UREA NITROGEN 28 mg/dL (7-18); CALCIUM 7.1 mg/dL (8.5-10.1); CARBON DIOXIDE 37 mEq/L (21-32); CHLORIDE 104 mmol/L (98-107); GLUCOSE FASTING 74 mg/dL (65-100); OSMOLALITY SERUM 297 MOSM/KG (275-295); PHOSPHOROUS 2.3 mg/dL (2.5-4.9); SODIUM 147 mmol/L (136-145)
[2024-02-05 08:24] LABS: ABG PO2 123.2 mmHg (80-100); ABG pCO2 56.3 mmHg (35-45); BASE EXCESS 9.9 mmol/l; BICARBONATE 36.5 mmol/l (23-25); SaO2 98.9 %; Tco2 38.2 mmol/l
[2024-02-05] MEDS ORDERED: FUROsemide 20 MG/2 ML VIAL IV SCH (09:00)
[2024-02-05 09:15] LABS: BUN CREA RATIO 186 (7.0-25.0); GFR 663.51
[2024-02-05 09:27] LABS: allen test SATISFACTORY; puncture site RADIAL RIGHT
[2024-02-05 09:29] LABS: o2 35 %
[2024-02-05] MEDS ORDERED: POTASSIUM PHOS,M-BASIC-D-BASIC 3 MM/ML VIAL IV NR (09:30)
[2024-02-05] MEDS ORDERED: POTASSIUM CHLORIDE 20MEQ/100ML H2O PB IV SCH (09:57)
[2024-02-05] MEDS ORDERED: LOPERAMIDE HCL 4 MG/30 ML LIQUID PO SCH (10:00)
[2024-02-05 10:13] LABS: CREATININE SERUM < 0.15 mg/dL (0.70-1.30)
[2024-02-05 12:00] VITALS: BP 106/58; O2SAT 100
[2024-02-05 15:37] VITALS: BP 125/72; O2SAT 100
[2024-02-05 20:00] VITALS: BP 97/67; O2SAT 97
[2024-02-05] MEDS ORDERED: METOPROLOL TARTRATE 5MG/5ML AMPUL IV ONE (22:45)
[2024-02-05 23:35] VITALS: BP 76/62; O2SAT 100
[2024-02-06 04:01] VITALS: BP 85/62; O2SAT 100
[2024-02-06 06:56] VITALS: BP 82/57; O2SAT 100
[2024-02-06] MEDS ORDERED: VANCOMYCIN HCL 5 MG/ML REDILUIDO IV SCH (09:00)
[2024-02-06 10:30] LABS: HEMATOCRIT 28.6 % (39.0-48.0); HEMOGLOBIN 9.4 g/dL (13-16.00); MEAN CELL VOLUME 94.5 fL (80.0-100.00); MEAN CORPUSCULAR HGB CONC 32.8 g/dl (32.0-36.0); RED BLOOD COUNT 3.03 M/uL (4.00-6.00); RED CELL DISTRIBUTION WIDTH 17.2 % (11.5-14.5)
[2024-02-06 10:59] LABS: ABG PH 7.431 (7.35-7.45); ABG pCO2 50.3 mmHg (35-45); BICARBONATE 32.7 mmol/l (23-25); Tco2 34.3 mmol/l
[2024-02-06 11:00] LABS: allen test SATISFACTORY; o2 35 %; puncture site RADIAL LEFT
[2024-02-06 11:01] LABS: ABG PH 7.477 (7.35-7.45); ABG pCO2 44.5 mmHg (35-45)
[2024-02-06 11:02] LABS: BASE EXCESS 7.6 mmol/l; BICARBONATE 32.2 mmol/l (23-25); Tco2 33.5 mmol/l; allen test SATISFACTORY; o2 35 %; puncture site RADIAL RIGHT
[2024-02-06 11:18] LABS: PLATELET COUNT 117 K/uL (150-450)
[2024-02-06 11:43] LABS: CALCIUM 6.9 mg/dL (8.5-10.1); GFR 537.6; MAGNESIUM 2.1 mg/dL (1.8-2.4); PHOSPHOROUS 2.3 mg/dL (2.5-4.9); POTASSIUM 3.39 mEq/L (3.5-5.1)
[2024-02-06 11:44] LABS: CREATININE SERUM 0.18 mg/dL (0.70-1.30)
[2024-02-06 12:00] VITALS: BP 98/64; O2SAT 100
[2024-02-06] MEDS ORDERED: POTASSIUM CHLORIDE 20MEQ/100ML H2O PB IV NR ×2 (13:00→16:00)
[2024-02-06] MEDS ORDERED: POTASSIUM PHOS,M-BASIC-D-BASIC 3 MM/ML VIAL IV ONE (13:00)
[2024-02-06 15:20] VITALS: BP 108/81; O2SAT 100
[2024-02-06] MEDS ORDERED: ENOXAPARIN SODIUM 40 MG/0.4 ML SYRINGE SUBCUTANEO STA (18:25)
[2024-02-06 20:00] VITALS: BP 95/66; O2SAT 100
[2024-02-06 23:09] VITALS: BP 86/61; O2SAT 99
[2024-02-07] VITALS (16 sets, daily range): BP systolic 84–106; BP diastolic 61–80; O2SAT 98–100
[2024-02-07] MEDS ORDERED: AMIODARONE HCL 50 MG/ML AMPUL IV NR (06:30)
[2024-02-07 07:01] LABS: HEMOGLOBIN 10.2 g/dL (13-16.00); MEAN CELL VOLUME 93.7 fL (80.0-100.00); MEAN CORPUSCULAR HEMOGLOBIN 30.9 pg (27.00-32.0); PLATELET COUNT 141 K/uL (150-450); RED BLOOD COUNT 3.31 M/uL (4.00-6.00); RED CELL DISTRIBUTION WIDTH 17.5 % (11.5-14.5)
[2024-02-07 07:40] LABS: ALBUMIN 1.8 gm/dL (3.4-5.0); BILIRUBIN TOTAL 0.99 mg/dL (0.3-1.2); CALCIUM 7.3 mg/dL (8.5-10.1); CREATININE SERUM 0.3 mg/dL (0.70-1.30); GFR 298.14; GLOBULINA 3.6 G/DL (2.4-3.5); MAGNESIUM 2.1 mg/dL (1.8-2.4); PHOSPHOROUS 2.1 mg/dL (2.5-4.9); POTASSIUM 3.34 mEq/L (3.5-5.1); TOTAL PROTEIN 5.4 gm/dL (6.4-8.2)
[2024-02-07 08:20] LABS: ABG PO2 99.7 mmHg (80-100); ABG pCO2 45.8 mmHg (35-45); BASE EXCESS 7.8 mmol/l; BICARBONATE 32.6 mmol/l (23-25); SaO2 98.3 %
[2024-02-07] MEDS ORDERED: POTASSIUM CHLORIDE 20MEQ/100ML H2O PB IV NR (10:00)
[2024-02-07] MEDS ORDERED: DEXTROSE 5 % IN WATER 1,000 ML IV SCH (10:00)
[2024-02-07] MEDS ORDERED: POTASSIUM PHOS,M-BASIC-D-BASIC 3 MM/ML VIAL IV ONE (12:00)
[2024-02-07] MEDS ORDERED: ACETAMINOPHEN 160 MG/5 ML ML PO PRN (13:45)
[2024-02-07 15:22] LABS: o2 35 %; puncture site RADIAL LEFT
[2024-02-07 15:23] LABS: allen test SATISFACTORY
[2024-02-07] MEDS ORDERED: CEFAZOLIN SODIUM 1,000 MG VIAL IV ONE (20:30)
[2024-02-08] VITALS (11 sets, daily range): BP systolic 86–112; BP diastolic 57–86; O2SAT 100
[2024-02-08 06:56] LABS: CALCIUM 7.3 mg/dL (8.5-10.1); MAGNESIUM 1.8 mg/dL (1.8-2.4); PHOSPHOROUS 2.1 mg/dL (2.5-4.9); POTASSIUM 3.06 mEq/L (3.5-5.1)
[2024-02-08 07:04] LABS: CREATININE SERUM 0.28 mg/dL (0.70-1.30); GFR 322.86
[2024-02-08 08:17] LABS: ABG PH 7.455 (7.35-7.45); ABG PO2 101.3 mmHg (80-100); ABG pCO2 46.6 mmHg (35-45); BASE EXCESS 6.9 mmol/l; SaO2 98.2 %; Tco2 33.4 mmol/l
[2024-02-08] MEDS ORDERED: ENOXAPARIN SODIUM 40 MG/0.4 ML SYRINGE SUBCUTANEO SCH (09:00)
[2024-02-08 10:10] LABS: allen test SATISFACTORY; o2 35 %; puncture site RADIAL RIGHT
[2024-02-08] MEDS ORDERED: 0.9 % SODIUM CHLORIDE 1,000 ML IV SCH (10:30)
[2024-02-08] MEDS ORDERED: POTASSIUM PHOS,M-BASIC-D-BASIC 3 MM/ML VIAL IV ONE (11:00)
[2024-02-08] MEDS ORDERED: AMIODARONE HCL 200 MG TABLET PO SCH (17:00)
[2024-02-09 04:12] VITALS: BP 92/58; O2SAT 100
[2024-02-09 07:11] VITALS: BP 86/57; O2SAT 100
[2024-02-09 08:17] LABS: ALBUMIN 1.4 gm/dL (3.4-5.0); BILIRUBIN TOTAL 0.7 mg/dL (0.3-1.2); CALCIUM 6.6 mg/dL (8.5-10.1); GLOBULINA 2.9 G/DL (2.4-3.5); MAGNESIUM 1.7 mg/dL (1.8-2.4); PHOSPHOROUS 2.5 mg/dL (2.5-4.9); TOTAL PROTEIN 4.3 gm/dL (6.4-8.2)
[2024-02-09 08:20] LABS: GFR 574.24
[2024-02-09 08:22] LABS: CREATININE SERUM 0.17 mg/dL (0.70-1.30)
[2024-02-09 08:23] LABS: C-REACTIVE PROTEIN 9.86 MG/DL (0.00-0.29); POTASSIUM 2.69 mEq/L (3.5-5.1)
[2024-02-09 08:49] LABS: ABG PH 7.441 (7.35-7.45); ABG PO2 156.1 mmHg (80-100); ABG pCO2 48.3 mmHg (35-45); BASE EXCESS 6.8 mmol/l; BICARBONATE 32.2 mmol/l (23-25); SaO2 99.5 %
[2024-02-09 08:50] LABS: Tco2 33.6 mmol/l; allen test SATISFACTORY; o2 35 %; puncture site RADIAL LEFT
[2024-02-09] MEDS ORDERED: MAGNESIUM SULFATE IN WATER 50 ML IV NR (12:15)
[2024-02-09 12:18] VITALS: BP 105/66; O2SAT 95
[2024-02-09 15:53] VITALS: BP 86/54; O2SAT 96
[2024-02-09 18:55] VITALS: O2SAT 91
[2024-02-10] VITALS (7 sets, daily range): BP systolic 92–117; BP diastolic 64–71; O2SAT 72–98
[2024-02-10] MEDS ORDERED: LOPERAMIDE HCL 4 MG/30 ML LIQUID PO SCH (09:00)
[2024-02-10] MEDS ORDERED: DEXTROSE 5 % IN WATER 1,000 ML IV SCH (10:30)
[2024-02-10] MEDS ORDERED: FUROsemide 20 MG/2 ML VIAL IV SCH (21:00)
[2024-02-10] MEDS ORDERED: ALBUMIN HUMAN 100 ML VIAL IV SCH (21:00)
[2024-02-11] VITALS (7 sets, daily range): BP systolic 84–98; BP diastolic 57–64; O2SAT 86–99
[2024-02-11 09:54] LABS: HEMATOCRIT 27.1 % (39.0-48.0); MEAN CELL VOLUME 94.4 fL (80.0-100.00); MEAN CORPUSCULAR HGB CONC 32.7 g/dl (32.0-36.0); PLATELET COUNT 148 K/uL (150-450); RED BLOOD COUNT 2.87 M/uL (4.00-6.00)
[2024-02-11 10:02] LABS: HEMOGLOBIN 8.9 g/dL (13-16.00)
[2024-02-11 10:25] LABS: ALBUMIN 2.3 gm/dL (3.4-5.0); BILIRUBIN TOTAL 0.72 mg/dL (0.3-1.2); CALCIUM 7.2 mg/dL (8.5-10.1); GLOBULINA 2.7 G/DL (2.4-3.5); MAGNESIUM 1.6 mg/dL (1.8-2.4); POTASSIUM 3.09 mEq/L (3.5-5.1)
[2024-02-11 10:58] LABS: GFR 322.86
[2024-02-11 10:59] LABS: C-REACTIVE PROTEIN 7.61 MG/DL (0.00-0.29)
[2024-02-11 11:02] LABS: PHOSPHOROUS 1.8 mg/dL (2.5-4.9)
[2024-02-11 11:03] LABS: CREATININE SERUM 0.28 mg/dL (0.70-1.30)
[2024-02-11] MEDS ORDERED: POTASSIUM CHLORIDE IN WATER 100 ML IV STA (21:42)
[2024-02-11] MEDS ORDERED: MAGNESIUM SULFATE 1,000 MG in 0.9 % SODIUM CHLORIDE 50 ML IV ONE (21:45)
[2024-02-11] MEDS ORDERED: POTASSIUM PHOS,M-BASIC-D-BASIC 15 MM in 0.9 % SODIUM CHLORIDE 250 ML IV ONE (21:45)
[2024-02-12] VITALS (9 sets, daily range): BP systolic 89–125; BP diastolic 57–70; O2SAT 90–100
[2024-02-12] MEDS ORDERED: FF) Voriconazole 200 MG VIAL IV SCH (05:00)
[2024-02-12] MEDS ORDERED: SOD FERRIC GLUC COMPLX/SUCROSE 62.5 MG in 0.9 % SODIUM CHLORIDE 50 ML IV SCH (09:00)
[2024-02-12 11:31] LABS: GFR 367.96
[2024-02-12 11:32] LABS: POTASSIUM 2.84 mEq/L (3.5-5.1)
[2024-02-12 14:06] LABS: CREATININE SERUM 0.25 mg/dL (0.70-1.30)
[2024-02-13 00:19] VITALS: O2SAT 86
[2024-02-13 00:49] VITALS: BP 82/63; O2SAT 95
[2024-02-13 03:17] VITALS: O2SAT 99
[2024-02-13 16:27] VITALS: O2SAT 100
[2024-02-13] MEDS ORDERED: LOPERAMIDE HCL 4 MG/30 ML LIQUID PO SCH (17:00)
[2024-02-13 17:25] VITALS: BP 110/55; O2SAT 90
[2024-02-13 18:34] LABS: HEMATOCRIT 27.8 % (39.0-48.0); HEMOGLOBIN 9.2 g/dL (13-16.00); MEAN CELL VOLUME 92.7 fL (80.0-100.00); MEAN CORPUSCULAR HEMOGLOBIN 30.5 pg (27.00-32.0); MEAN CORPUSCULAR HGB CONC 32.9 g/dl (32.0-36.0); PLATELET COUNT 142 K/uL (150-450)
[2024-02-13 18:55] LABS: MAGNESIUM 1.7 mg/dL (1.8-2.4)
[2024-02-13 19:10] LABS: GFR 367.96
[2024-02-13 19:15] LABS: PHOSPHOROUS 1.6 mg/dL (2.5-4.9); POTASSIUM 2.49 mEq/L (3.5-5.1)
[2024-02-13 19:21] LABS: CREATININE SERUM 0.25 mg/dL (0.70-1.30)
[2024-02-13] MEDS ORDERED: POTASSIUM PHOS,M-BASIC-D-BASIC 3 MM/ML VIAL IV STA ×2 (19:22→19:51)
[2024-02-13] MEDS ORDERED: MAGNESIUM SULFATE IN WATER 2 GM/50 ML PIGGYBAG IV STA (19:22)
[2024-02-13] MEDS ORDERED: POTASSIUM CHLORIDE/D5W 20 MEQ/1,000 ML PIGGYBAG IV ONE (19:30)
[2024-02-13] MEDS ORDERED: POTASSIUM CHLORIDE 20MEQ/100ML H2O PB IV ONE (19:45)
[2024-02-13 22:02] VITALS: O2SAT 98
[2024-02-14] VITALS (10 sets, daily range): BP systolic 93–136; BP diastolic 63–68; O2SAT 75–100
[2024-02-14 08:34] LABS: ABG PH 7.449 (7.35-7.45); ABG PO2 133.3 mmHg (80-100); ABG pCO2 45.4 mmHg (35-45); BASE EXCESS 5.8 mmol/l; BICARBONATE 30.8 mmol/l (23-25); SaO2 99.2 %; Tco2 32.2 mmol/l
[2024-02-14 09:10] LABS: HEMATOCRIT 28.1 % (39.0-48.0); HEMOGLOBIN 9.4 g/dL (13-16.00); MEAN CELL VOLUME 91.8 fL (80.0-100.00); MEAN CORPUSCULAR HEMOGLOBIN 30.7 pg (27.00-32.0); MEAN CORPUSCULAR HGB CONC 33.4 g/dl (32.0-36.0); PLATELET COUNT 148 K/uL (150-450); RED BLOOD COUNT 3.06 M/uL (4.00-6.00); RED CELL DISTRIBUTION WIDTH 18.3 % (11.5-14.5)
[2024-02-14 09:49] LABS: ALBUMIN 1.7 gm/dL (3.4-5.0); BILIRUBIN TOTAL 0.6 mg/dL (0.3-1.2); CALCIUM 7.1 mg/dL (8.5-10.1); GLOBULINA 2.9 G/DL (2.4-3.5); MAGNESIUM 2.2 mg/dL (1.8-2.4); PHOSPHOROUS 3.6 mg/dL (2.5-4.9); POTASSIUM 3.11 mEq/L (3.5-5.1); TOTAL PROTEIN 4.6 gm/dL (6.4-8.2)
[2024-02-14 10:55] LABS: CREATININE SERUM 0.24 mg/dL (0.70-1.30); GFR 385.71
[2024-02-14] MEDS ORDERED: DEXTROSE 5 % IN WATER 1,000 ML IV SCH (11:15)
[2024-02-14] MEDS ORDERED: POTASSIUM CHLORIDE 20MEQ/100ML H2O PB IV NR (11:15)
[2024-02-14 15:38] LABS: allen test SATISFACTORY; o2 35 %; puncture site RADIAL RIGHT
[2024-02-15 06:18] VITALS: O2SAT 90
[2024-02-15 08:00] VITALS: BP 120/62
[2024-02-15 09:56] VITALS: O2SAT 99
[2024-02-15 16:18] VITALS: O2SAT 100
[2024-02-15 17:21] VITALS: BP 105/60; O2SAT 100
[2024-02-15 19:37] VITALS: O2SAT 99
[2024-02-16] VITALS (11 sets, daily range): BP systolic 102–132; BP diastolic 64–80; O2SAT 18–100
[2024-02-16 15:00] LABS: HEMATOCRIT 26.2 % (39.0-48.0); MEAN CORPUSCULAR HEMOGLOBIN 30.1 pg (27.00-32.0); MEAN CORPUSCULAR HGB CONC 32.8 g/dl (32.0-36.0); PLATELET COUNT 142 K/uL (150-450); RED BLOOD COUNT 2.85 M/uL (4.00-6.00); RED CELL DISTRIBUTION WIDTH 18.1 % (11.5-14.5)
[2024-02-16 15:05] LABS: HEMOGLOBIN 8.6 g/dL (13-16.00)
[2024-02-16 15:33] LABS: CALCIUM 6.7 mg/dL (8.5-10.1); MAGNESIUM 1.7 mg/dL (1.8-2.4); POTASSIUM 3.19 mEq/L (3.5-5.1)
[2024-02-16 16:05] LABS: CREATININE SERUM 0.26 mg/dL (0.70-1.30); GFR 351.68; PHOSPHOROUS 1.7 mg/dL (2.5-4.9)
[2024-02-16] MEDS ORDERED: POTASSIUM PHOS,M-BASIC-D-BASIC 3 MM/ML VIAL IV STA (19:07)
[2024-02-16] MEDS ORDERED: POTASSIUM CHLORIDE 20MEQ/100ML H2O PB IV ONE (19:15)
[2024-02-17 03:58] VITALS: O2SAT 90
[2024-02-17 08:57] VITALS: BP 103/55; O2SAT 93
[2024-02-17 09:25] VITALS: O2SAT 100
[2024-02-17 12:33] LABS: ABG PH 7.441 (7.35-7.45); ABG PO2 110.1 mmHg (80-100); ABG pCO2 44.2 mmHg (35-45); BASE EXCESS 4.6 mmol/l; BICARBONATE 29.4 mmol/l (23-25); SaO2 98.5 %; Tco2 30.7 mmol/l
[2024-02-17 12:34] LABS: o2 35 %; puncture site RADIAL LEFT
[2024-02-17 12:35] LABS: allen test SATISFACTORY
[2024-02-17 14:15] VITALS: BP 93/69; O2SAT 97
[2024-02-18] VITALS (7 sets, daily range): BP systolic 91–121; BP diastolic 51–78; O2SAT 90–100
[2024-02-18] MEDS ORDERED: POTASSIUM PHOS,M-BASIC-D-BASIC 3 MM/ML VIAL IV NR (12:30)
[2024-02-18] MEDS ORDERED: KETOROLAC TROMETHAMINE 30 MG VIAL IV NR (13:30)
[2024-02-18] MEDS ORDERED: LIDOCAINE 5% 1 PATCH ADH. TOP SCH (21:00)
[2024-02-19] VITALS (7 sets, daily range): BP systolic 125–157; BP diastolic 78–83; O2SAT 87–100
[2024-02-19 10:11] LABS: CALCIUM 7.7 mg/dL (8.5-10.1); GFR 310.04; POTASSIUM 3.9 mEq/L (3.5-5.1)
[2024-02-19 10:12] LABS: CREATININE SERUM 0.29 mg/dL (0.70-1.30)
[2024-02-20] VITALS: BP 112/66; O2SAT 100
[2024-02-20 00:19] VITALS: O2SAT 90
[2024-02-20 05:38] VITALS: O2SAT 96
[2024-02-20 08:00] VITALS: BP 121/71
[2024-02-20] MEDS ORDERED: DILTIAZEM HCL30 MG PO (09:13)
[2024-02-20] MEDS ORDERED: IPRATROPIU0.2 MG/1 M IH (09:13)
[2024-02-20] MEDS ORDERED: CLOTRIMAZOLE-BE15 G1 TOP (09:13)
[2024-02-20] MEDS ORDERED: LIDODERM1 EACH TOP (09:13)
[2024-02-20] MEDS ORDERED: ELIQUIS5 MG PO (09:13)
[2024-02-20] MEDS ORDERED: AMIODARONE HCL200 MG PO (09:13)
[2024-02-20] MEDS ORDERED: PROTEINEX-18 LI30 ML PO (09:13)
[2024-02-20] MEDS ORDERED: THIAMINE HCL100 MG PO (09:13)
[2024-02-20] MEDS ORDERED: ACETAMINOPHEN 160 MG/5 ML ML PO STA (09:44)
[2024-02-20] MEDS ORDERED: DIPHENHYDRAMINE HCL 50 MG/ML VIAL 1ML IV NR (10:00)
== END 2024-02-20 13:07 | disposition home or self-care (01) | DRG 4 ==
LOC: ER 20:06 → ICU 22:06 → ICU-2 22:06 → ICU 12-05 01:42 → SURG 12-07 19:19 → ICU 12-23 02:21 → SURH 12-25 19:06 → ICU 01-19 16:17 → SURH 02-09 13:43 → ICU 02-09 14:49 → SURH 02-09 18:01
PROVIDERS: Emergency Medicine; Internal Medicine; Internal Medicine Critical Care Medicine; Internal Medicine Infectious Disease; Internal Medicine Pulmonary Disease; ADMIT Internal Medicine Geriatric Medicine; ATTEND Internal Medicine Geriatric Medicine
PROC: 5A1955Z Respiratory Ventilation, Greater than 96 Consecutive Hours (ICD-10-PCS; 2023-12-04)
PROC: 0BH18EZ Insertion of Endotracheal Airway into Trachea, Via Natural or Artificial Opening Endoscopic (ICD-10-PCS; 2023-12-04)
PROC: 0D9670Z Drainage of Stomach with Drainage Device, Via Natural or Artificial Opening (ICD-10-PCS; principal; 2023-12-07)
PROC: 3E0G76Z Introduction of Nutritional Substance into Upper GI, Via Natural or Artificial Opening (ICD-10-PCS; 2023-12-07)
PROC: 4A12X4Z Monitoring of Cardiac Electrical Activity, External Approach (ICD-10-PCS; 2023-12-07)
PROC: B54MZZZ Ultrasonography of Right Upper Extremity Veins (ICD-10-PCS; 2023-12-10)
PROC: 02HV33Z Insertion of Infusion Device into Superior Vena Cava, Percutaneous Approach (ICD-10-PCS; 2023-12-12)
PROC: 0DJ08ZZ Inspection of Upper Intestinal Tract, Via Natural or Artificial Opening Endoscopic (ICD-10-PCS; 2023-12-13)
PROC: BW24YZZ Computerized Tomography (CT Scan) of Chest and Abdomen using Other Contrast (ICD-10-PCS; 2023-12-15)
PROC: BW21YZZ Computerized Tomography (CT Scan) of Abdomen and Pelvis using Other Contrast (ICD-10-PCS; 2023-12-27)
PROC: 30243N1 Transfusion of Nonautologous Red Blood Cells into Central Vein, Percutaneous Approach (ICD-10-PCS; 2024-01-24)
PROC: 0B110F4 Bypass Trachea to Cutaneous with Tracheostomy Device, Open Approach (ICD-10-PCS; 2024-01-25)
PROC: 5A1955Z Respiratory Ventilation, Greater than 96 Consecutive Hours (ICD-10-PCS; 2024-01-25)
PROC: 0B110F4 Bypass Trachea to Cutaneous with Tracheostomy Device, Open Approach (ICD-10-PCS; 2024-01-25)
PROC: 0DHA4UZ Insertion of Feeding Device into Jejunum, Percutaneous Endoscopic Approach (ICD-10-PCS; 2024-01-25)
PROC: 0D20XUZ Change Feeding Device in Upper Intestinal Tract, External Approach (ICD-10-PCS; 2024-01-25)
PROC: 0HBCXZX Excision of Left Upper Arm Skin, External Approach, Diagnostic (ICD-10-PCS; 2024-02-07)
PROC: B54MZZZ Ultrasonography of Right Upper Extremity Veins (ICD-10-PCS; 2024-02-10)
DX: A41.9 Sepsis, unspecified organism (principal); J69.0 Pneumonitis due to inhalation of food and vomit; J96.90 Respiratory failure, unspecified, unspecified whether with hypoxia or hypercapnia; R65.21 Severe sepsis with septic shock; E46 Unspecified protein-calorie malnutrition; I82.401 Acute embolism and thrombosis of unspecified deep veins of right lower extremity; E87.29 Other acidosis; J06.9 Acute upper respiratory infection, unspecified; I48.91 Unspecified atrial fibrillation; E83.39 Other disorders of phosphorus metabolism; D64.9 Anemia, unspecified; I10 Essential (primary) hypertension; J44.9 Chronic obstructive pulmonary disease, unspecified; G72.9 Myopathy, unspecified; B96.1 Klebsiella pneumoniae [K. pneumoniae] as the cause of diseases classified elsewhere; K30 Functional dyspepsia; R69 Illness, unspecified; K56.41 Fecal impaction; J98.8 Other specified respiratory disorders; M34.9 Systemic sclerosis, unspecified; J84.10 Pulmonary fibrosis, unspecified; F43.20 Adjustment disorder, unspecified; R13.10 Dysphagia, unspecified